=== PATIENT | male | born 1950 | race Caucasian/White ===

== ENCOUNTER 2016-07-18 22:53 | Inpatient (IN) | payer BC ==
[~2016-07-18] VITALS: Ht 172.7 cm; Wt 100.0 kg
[2016-07-18] MEDS ORDERED: methylPREDNISolone INJ 125 MG/2 ML VIAL (J2930) As Ordered ONE (23:33)
[2016-07-18] MEDS ORDERED: diphenhydrAMINE INJ 50MG/ML VIAL (J1200) As Ordered ONE (23:33)
[2016-07-18] MEDS ORDERED: FAMOTIDINE INJ 20MG/2ML VIAL (S0028) As Ordered ONE (23:33)
[2016-07-18] MEDS ORDERED: KETAMINE HCL 200 MG/20 ML VIAL As Ordered ONE (23:36)
[2016-07-18] MEDS ORDERED: LIDOCAINE 4% INJ 5 ML AMP INH ONE (23:45)
[2016-07-18 23:50] LABS: BASO % 0.1 % (0.0-1.0); EOS # 0.2 K/mm3 (0.0-0.50); EOS % 2.6 % (0.0-3.0); LARGE UNSTAINED CELL # 0.2 K/mm3 (0.0-0.4); LARGE UNSTAINED CELL % 1.9 % (0.0-4.0); LYMPH # 1.5 K/mm3 (1.5-4.5); MEAN CORPUSCULAR HEMOGLOBIN 32.1 pg (27.0-33.0); MEAN CORPUSCULAR HGB CONC 33.5 g/dl (32.0-36.5); MEAN CORPUSCULAR VOLUME 95.9 fl (80.0-96.0); MONO # 0.5 K/mm3 (0.0-0.8); MONO % 6.1 % (0.0-5.0); NEUTROPHILS # 5.3 K/mm3 (1.8-7.7); NEUTROPHILS % 69.2 % (36.0-66.0); PLATELET COUNT, AUTOMATED 162 k/mm3 (150-450); RED CELL DISTRIBUTION WIDTH 12.7 % (11.5-14.5); WHITE BLOOD COUNT 7.7 K/mm3 (4.0-10.0)
[2016-07-18] MEDS ORDERED: MIDAZOLAM INJ 5 MG/ML VIAL (J2250) As Ordered ONE (23:57)
[2016-07-18] MEDS ORDERED: PROPOFOL 200 MG/20 ML VIAL As Ordered ONE (23:59)
[2016-07-18] MEDS ORDERED: PROPOFOL 1,000 MG/100 ML VIAL As Ordered ONE (23:59)
[2016-07-19] VITALS (21 sets, daily range): BP systolic 115–157; BP diastolic 56–95; O2SAT 96–99
[2016-07-19 00:07] LABS: ERYTHROCYTE SEDIMENTATION RATE 6 mm/hr (0-20)
[2016-07-19 00:15] LABS: ANION GAP 6 MEQ/L (8-16); BLOOD UREA NITROGEN 31 MG/DL (7-18); CALCIUM LEVEL 8.4 MG/DL (8.8-10.2); CARBON DIOXIDE LEVEL 29 MEQ/L (21-32); CHLORIDE LEVEL 107 MEQ/L (98-107); CREATININE FOR GFR 0.94 MG/DL (0.70-1.30); GLOMERULAR FILTRATION RATE > 60.0 (>49); GLUCOSE, FASTING 109 MG/DL (80-110); SODIUM LEVEL 142 MEQ/L (136-145)
--- NOTE | 2016-07-19 00:30 | REP ---
Clinical: Status post intubation. Comparison: 02/06/2009. Findings: Examination is limited by portable technique and poor inspiratory effort which accentuate the pulmonary vasculature and interstitial markings. Pulmonary vascular congestion cannot be excluded along with basilar atelectasis. Endotracheal tube is approximately 2.2 cm above the goyo. No definite effusion. No pneumothorax. Skeletal structures appear intact. Impression: Endotracheal tube approximately 2.2 cm above the goyo. Cannot exclude pulmonary vascular congestion or trace basilar atelectasis. Signed by David Gonzalez MD 07/19/2016 12:21 A
[2016-07-19 00:45] LABS: ABG BASE EXCESS -3.3 (-2.0-2.0); ABG DEVICE NASAL CANN; ABG HCO3 22.9 MEQ/L (22.0-26.0); ABG PARTIAL PRESSURE CO2 45.5 mmHg (35.0-45.0); ABG PARTIAL PRESSURE O2 96.4 mmHg (75.0-100.0); ABG STANDARD HCO3 21.7 MEQ/L (22.0-26.0); ABG TOTAL CO2 24.3 MEQ/L (23.0-31.0)
[2016-07-19] MEDS ORDERED: PROPOFOL 1,000 MG in APPROPRIATE DILUENT 1 EA IV SCH (00:50)
[2016-07-19] MEDS ORDERED: MORPHINE 2 MG/ML 1ML SYRINGE IV PRN (01:00)
[2016-07-19] MEDS ORDERED: MIDAZOLAM INJ 2 MG/2 ML VIAL (J2250) IV PRN (01:00)
[2016-07-19] MEDS ORDERED: MIDAZOLAM INJ 2 MG/2 ML VIAL (J2250) As Ordered ONE ×3 (01:13→04:09)
[2016-07-19] MEDS ORDERED: VITA-130 PO (01:20)
[2016-07-19] MEDS ORDERED: FISH120012 PO (01:20)
[2016-07-19] MEDS ORDERED: VITATAB11 PO (01:20)
[2016-07-19] MEDS ORDERED: LISI2.5T3 PO (01:20)
[2016-07-19] MEDS ORDERED: CRES20TA PO (01:20)
[2016-07-19] MEDS ORDERED: CALC1TAB30 PO (01:20)
[2016-07-19] MEDS ORDERED: PLAV75TA38 PO (01:20)
[2016-07-19] MEDS ORDERED: ASPI81CH PO (01:20)
[2016-07-19] MEDS ORDERED: TIMO5OPD OU (01:20)
[2016-07-19] MEDS ORDERED: ZOLP10TA2 PO (01:20)
[2016-07-19] MEDS ORDERED: TYLE650T35 PO (01:20)
[2016-07-19] MEDS ORDERED: VITA100066 PO (01:20)
--- NOTE | 2016-07-19 02:18 | CCN ---
DATE: 07/19/2016 I was called to evaluate this 65-year-old male in the emergency department for acute hypoxic respiratory failure. He presented to the emergency department with shortness of breath and a foreign body sensation in his throat. Endoscopy was performed and significant edema was identified of the upper airway. An endotracheal tube was placed via nasal approach and he has been initiated on mechanical ventilatory support. According to his spouse, he was in his usual state of health prior to this episode with no prodromal symptoms. He has been taking an DONALD inhibitor for the past five years to treat hypertension. He has a past medical history per the electronic record of coronary artery disease and myocardial infarction in 2008 and subsequently two stents were placed. He has hypertension and dyslipidemia, osteoarthritis, degenerative disc disease and a remote history of colon polyps. At bedside, he is ill-appearing. His temperature is 98, pulse rate 100, respirations 18 over 14 delivered, blood pressure 122/70. HEENT: His pupils are equal and round and react to light. The endotracheal tube is in the left nares, #7 in size. The oral mucosa is pink. Neck is supple without meningismus. There is no stridor or air leak over the upper air column. Jugular veins are flat. Heart: Sounds are regular without appreciable murmur. There is no lift, no rub. Breath sounds are coarse, clear bilaterally. No focal sounds. The chest moves symmetrically with ventilated efforts. Abdomen is soft with intact bowel sounds. There is no palpable mass. Extremities: Show no significant edema. Pulses are palpable times four. DIAGNOSTIC STUDIES: I have reviewed his chest x-ray image which shows the endotracheal tube in good position and cardiomegaly. I have reviewed a photograph taken at time of the endoscopy which does show significant supraglottic edema. White cell count is 7.7, hemoglobin 14.4, hematocrit 41, platelet count 162,000. Sodium is 142, potassium 4.0, chloride 107, CO2 29, BUN 31, creatinine 0.9, glucose 109. Arterial blood gases have been drawn and results are pending. The primary problem requiring critical attention is acute respiratory failure. The patient has had nasotracheal intubation performed. Will initiate mechanical ventilation and check an arterial blood gas. Laryngeal edema, angioedema. I suspect secondary to the DONALD inhibitor. Medication has been stopped. Coronary artery disease. We will hold his anticoagulation (aspirin and Plavix) for the time being. Hypertension. Blood pressure is acceptable at this point. He is receiving propofol sedation. Will continue with atenolol. DVT prophylaxis. This will be addressed with sequential hose. Ulcer prophylaxis will be addressed with Protonix. I have discussed the patient's case at bedside with the ER attending and the patient's spouse. We will now facilitate admission to the intensive care unit as soon as a bed becomes available. 87 minutes spent in the provision of bedside critical care coordination.
[2016-07-19] MEDS ORDERED: METAL LOCK LOOP XX ONE (02:33)
[2016-07-19] MEDS ORDERED: PROPOFOL 1,000 MG/100 ML VIAL As Ordered ONE ×2 (04:03→06:42)
[2016-07-19 05:35] LABS: ABG BASE EXCESS -1.4 (-2.0-2.0); ABG HCO3 23.4 MEQ/L (22.0-26.0); ABG PARTIAL PRESSURE CO2 39.8 mmHg (35.0-45.0); ABG PARTIAL PRESSURE O2 89.4 mmHg (75.0-100.0); ABG STANDARD HCO3 23.3 MEQ/L (22.0-26.0); ABG TOTAL CO2 24.6 MEQ/L (23.0-31.0); ABG pH (ARTERIAL) 7.387 UNITS (7.350-7.450)
--- NOTE | 2016-07-19 05:45 | EDDOCDS ---
Nurse's Notes [facility] Name: Brent Harris Age: 65 yrs Sex: Male : 1950 Arrival Date: 07/18/2016 Time: 22:53 Bed 2 Private MD: Eduard Diagnosis: Shortness of breath-AIRWAY ANGIOEDEMA, ACEI INDUCED. Presentation: 07/18 23:09 Presenting complaint: Patient states: While riding his bike home at 2030, pt felt like jo3 his throat was tingling. Over the course of the next 2 hours, pt felt like his airway was narrowing and he was struggling to get in an breath. Adult Sepsis Screening: The patient does not have new or worsening altered mentation. Patient's respiratory rate is less than 22. Systolic blood pressure is greater than 100. Patient has a qSOFA score of 0- Negative Sepsis Screen. Suicide/Homicide risk assessment- the patient denies having any suicidal and/or homicidal ideations and does not present with any other emotional, behavioral or mental health complaints. Status: Patient is not a counseling services manager or dependent. Transition of care: patient was not received from another setting of care. 23:09 Acuity: TRINO Level 2 jo3 23:09 Method Of Arrival: Walkin/Carried/Asstd jo3 Triage Assessment: 23:11 General: Appears in no apparent distress, comfortable, Behavior is appropriate for age, jo3 cooperative. HIV screening NA for this visit Offered previously. Neurological: Level of Consciousness is awake, alert, Oriented to person, place, time. Respiratory: Airway is patent Respiratory effort is even, unlabored. Derm: Skin is pink, warm & dry. 07/19 05:32 Respiratory: Onset: The symptoms/episode began/occurred gradually. jp6 Historical: - Allergies: No known drug Allergies; - Home Meds: 1. lisinopril 2.5 mg Oral tab 1 tab once daily 2. Crestor 20 mg Oral tab 1 tab once daily 3. atenolol 25 mg Oral tab 1 tab once daily 4. Plavix 75 mg Oral tab 1 tab once daily 5. aspirin 81 mg Oral tab 1 tab once daily 6. zolpidem 10 mg Oral tab 1 tab once daily 7. Tylenol 325 mg Oral tab 2 tabs every 6 hours 8. gabapentin 300 mg Oral tab twice a day 9. Fish Oil 1200 Oral daily 10. vitamin B complex oral cap daily 11. timolol maleate 0.5 % Opht drpd 1 drop once daily - PMHx: NE; HTN; - PSHx: Knee surgery; back surgery; thumb surgery; foot surgery; Adenoidectomy; Tonsillectomy; TYSON carpal tunnel; knee replacements TYSON; cardiac stents x2; - Social history: Smoking status: Patient states former smoker of tobacco. No barriers to communication noted, The patient speaks fluent [place], Speaks appropriately for age. - Family history: Not pertinent. - : The pt / caregiver states he / she is not on anticoagulants. Home medication list is obtained from the patient, family members. - Exposure Risk Screening:: None identified. Screenin:31 Screening information is obtained from the patient. Fall risk: No risks identified. jp6 Assistance ADL's: requires no assistance with activities of daily living. Abuse/DV Screen: The patient / caregiver reports he/she is: not in a situation that causes fear, pain or injury. Nutritional screening: No deficits noted. Advance Directives: Currently, there is a health care proxy, Maribel Harris . There is no active DNR order. There is no living will. home support is adequate. Assessment: 07/18 23:50 General: Appears in no apparent distress, uncomfortable, well nourished, well groomed, kas2 Behavior is appropriate for age, cooperative. General: Patient complaining of a difficulty in breathing. States that he feels his throat is closing. Hoarse voice. States his throat feel scratchy. Denies chest pain. No drooling. Able to swallow own saliva. No tongue or lip swelling noted. . Pain: Location: throat Pain currently is 5 out of 10 on a pain scale. Neurological: Level of Consciousness is awake, alert, Oriented to person, place, time. Cardiovascular: Capillary refill < 3 seconds Heart tones S1 S2 present Rhythm is sinus rhythm No ectopy. Chest pain is denied. Respiratory: Airway is patent Respiratory effort is even, unlabored, Respiratory pattern is regular, symmetrical, Breath sounds are clear bilaterally. Derm: Skin is intact, Skin is dry, Skin is pink, warm & dry. Skin temperature is warm. Musculoskeletal: No deficits noted. Injury Description: No known injury. 23:55 Reassessment: Pt moved to - used ambuscope pt tolerated well.Plan to [facility] intubate for swelling.. 03 00:00 Reassessment: Patient appears in no apparent distress at this time. General: Appears in [facility] no apparent distress, comfortable. Neurological: Level of Consciousness is unresponsive. Cardiovascular: Capillary refill < 3 seconds Heart tones S1 S2 present Rhythm is sinus rhythm No ectopy. Respiratory: Airway via nasal intubation Respiratory effort is even, Respiratory pattern is symmetrical, Breath sounds are clear bilaterally. GI: No deficits noted. : No deficits noted. Derm: Skin is pink, warm & dry. Musculoskeletal: No deficits noted. 00:31 Reassessment: Patient appears in no apparent distress at this time. Respiratory: Airway [facility] via nasal intubation Respiratory effort is even, Respiratory pattern is symmetrical. 01:02 Reassessment: Patient appears in no apparent distress at this time. General: Appears in [facility] no apparent distress, comfortable. Pain: Unable to use pain scale. Neurological: Level of Consciousness is unresponsive, Oriented to. EENT: Nares with bleeding noted on left left nare. Cardiovascular: Rhythm is sinus rhythm No ectopy. Respiratory: Airway is patent via nasal intubation Respiratory effort is even, unlabored, Respiratory pattern is regular, symmetrical, Breath sounds are clear bilaterally. Derm: Skin is pink, warm & dry. 01:38 Reassessment: Patient appears in no apparent distress at this time. General: Appears in [facility] no apparent distress, Behavior is restless. Pain: Unable to use pain scale. Patient is intubated. Neurological: Level of Consciousness is unresponsive. EENT:. Cardiovascular: Rhythm is sinus rhythm No ectopy. Respiratory: Airway is patent via nasal intubation Respiratory effort is even, unlabored, Respiratory pattern is regular, symmetrical, Breath sounds are clear bilaterally. Derm: Skin is pink, warm & dry. 02:00 Reassessment: Patient appears in no apparent distress at this time. General: Appears in [facility] no apparent distress, comfortable. Neurological: Level of Consciousness is unresponsive. Cardiovascular: Rhythm is sinus rhythm No ectopy. Respiratory: Airway is patent Respiratory effort is even, unlabored, Respiratory pattern is regular, symmetrical, Breath sounds are clear bilaterally. Derm: Skin is pink, warm & dry. 02:30 Reassessment: Patient appears in no apparent distress at this time. remains at [facility] bedside. Pt is tolerating the ventilator.Appears comfortable-does move his toes. FFP infusing as ordered.. 02:40 Reassessment: FFP finished.. jp6 03:02 Reassessment: Patient appears in no apparent distress at this time. General: Appears in jp6 no apparent distress, comfortable. Pain: Unable to use pain scale. Patient is intubated. Pain: Unable to use pain scale. Patient is unresponsive. Neurological: Level of Consciousness is unresponsive. Cardiovascular: Rhythm is sinus rhythm No ectopy. Respiratory: Airway is patent Respiratory effort is even, unlabored, Respiratory pattern is regular, symmetrical, Breath sounds are clear. GI: No deficits noted. : No deficits noted. Derm: Skin is pink, warm & dry. 03:29 Reassessment: Patient appears in no apparent distress at this time. General: Appears in jp6 no apparent distress. Pain: Unable to use pain scale. Patient is intubated. Patient is unresponsive. Neurological: Level of Consciousness is unresponsive. Cardiovascular: Capillary refill < 3 seconds Heart tones S1 S2 present Rhythm is sinus rhythm No ectopy. Respiratory: Airway is patent Respiratory effort is even, unlabored, Respiratory pattern is regular, symmetrical. Derm: Skin is pink, warm & dry. 03:57 Reassessment: Patient appears in no apparent distress at this time. General: Appears in jp6 no apparent distress, comfortable. Neurological: Level of Consciousness is unresponsive. Cardiovascular: Rhythm is sinus rhythm No ectopy. Respiratory: Breath sounds are clear bilaterally. Derm: Skin is pink, warm & dry. 04:17 Reassessment: propofol being changed to new bottle-pt became very restless and went to [facility] pull out endotracheal tube- stopped him, at bedside and ordered another bolus of propofol which did help settle pt. remains atr bedside. Lungs are clear. O2 sat-98%.. 04:44 Reassessment: Patient appears in no apparent distress at this time. General: Appears in jp6 no apparent distress, comfortable. Pain: Unable to use pain scale. Patient is unresponsive. Neurological: Level of Consciousness is unresponsive. Cardiovascular: Capillary refill < 3 seconds Rhythm is sinus rhythm No ectopy. Respiratory: Airway is patent Respiratory effort is even, unlabored, Respiratory pattern is regular, symmetrical, Breath sounds are clear bilaterally. Derm: Skin is pink, warm & dry. 05:13 Reassessment: Patient appears in no apparent distress at this time. General: Appears in jp6 no apparent distress, comfortable. Pain: Unable to use pain scale. Patient is intubated. Patient is unresponsive. Neurological: Level of Consciousness is unresponsive. EENT:. Cardiovascular: Capillary refill < 3 seconds Rhythm is sinus rhythm No ectopy. Respiratory: Airway is patent Respiratory effort is even, Breath sounds are clear bilaterally. Derm: Skin is pink, warm & dry. Vital Signs: 07/18 22:54 BP 154 / 86 RA Sitting (auto/lg); Pulse 57; Resp 18; Temp 97.3(O); Pulse Ox 96% on R/A; rs6 Weight 102.06 kg (R); Height 5 ft. 8 in. (172.72 cm) (R); 23:35 Pulse 65 MON; Pulse Ox 98% ; jp6 23:36 Pulse 62 MON; Pulse Ox 98% ; jp6 23:54 BP 199 / 92 (auto/); jp6 23:54 Pulse 67 MON; Pulse Ox 97% ; jp6 23:59 BP 225 / 112 (auto/); jp6 23:59 Pulse 108 MON; Pulse Ox 95% ; jp6 07/19 00:08 BP 167 / 115 (auto/); jp6 00:08 Pulse 96 MON; Pulse Ox 98% ; jp6 00:13 BP 154 / 77 (auto/); jp6 00:13 Pulse 94 MON; Pulse Ox 85% ; jp6 00:16 BP 128 / 63 (auto/); jp6 00:16 Pulse 79 MON; Pulse Ox 99% ; jp6 00:21 BP 111 / 69 (auto/); jp6 00:21 Pulse 78 MON; Pulse Ox 99% ; jp6 00:26 BP 99 / 73 (auto/); jp6 00:26 Pulse 77 MON; Pulse Ox 97% ; jp6 00:31 BP 115 / 61 (auto/); jp6 00:31 Pulse 74 MON; Pulse Ox 97% ; jp6 00:36 BP 116 / 76 (auto/); jp6 00:36 Pulse 79 MON; Pulse Ox 96% ; jp6 00:41 BP 114 / 57 (auto/); jp6 00:41 Pulse 69 MON; Pulse Ox 97% ; jp6 00:46 BP 125 / 68 (auto/); jp6 00:46 Pulse 75 MON; Pulse Ox 95% ; jp6 00:51 BP 131 / 73 (auto/); jp6 00:51 Pulse 65 MON; Pulse Ox 94% ; jp6 00:56 BP 134 / 97 (auto/); jp6 00:56 Pulse 65 MON; Pulse Ox 98% ; jp6 01:01 BP 134 / 75 (auto/); jp6 01:01 Pulse 66 MON; Pulse Ox 97% ; jp6 01:06 BP 123 / 59 (auto/); jp6 01:06 Pulse 64 MON; Pulse Ox 97% ; jp6 01:11 BP 142 / 69 (auto/); jp6 01:11 Pulse 62 MON; Pulse Ox 96% ; jp6 01:16 BP 136 / 59 (auto/); jp6 01:16 Pulse 66 MON; Pulse Ox 96% ; jp6 01:16 Resp 16; Temp 96.6(TE); jp6 01:21 BP 111 / 58 (auto/); jp6 01:21 Pulse 67 MON; Pulse Ox 96% ; jp6 01:26 BP 108 / 59 (auto/); jp6 01:26 Pulse 64 MON; Pulse Ox 96% ; jp6 01:31 BP 105 / 55 (auto/); jp6 01:31 Pulse 65 MON; Pulse Ox 96% ; jp6 01:36 BP 121 / 57 (auto/); jp6 01:36 Pulse 64 MON; Pulse Ox 96% ; jp6 01:41 BP 119 / 59 (auto/); jp6 01:41 Pulse 63 MON; Pulse Ox 96% ; jp6 01:46 BP 114 / 68 (auto/); jp6 01:46 Pulse 65 MON; Pulse Ox 96% ; jp6 01:51 BP 129 / 76 (auto/); jp6 01:51 Pulse 65 MON; Pulse Ox 96% ; jp6 01:56 BP 150 / 79 (auto/); jp6 01:56 Pulse 65 MON; Pulse Ox 96% ; jp6 02:01 BP 125 / 60 (auto/); jp6 02:01 Pulse 67 MON; Pulse Ox 97% ; jp6 02:06 BP 131 / 60 (auto/); jp6 02:06 Pulse 67 MON; Pulse Ox 97% ; jp6 02:11 BP 117 / 62 (auto/); jp6 02:11 Pulse 68 MON; Pulse Ox 97% ; jp6 02:15 Pulse 67 MON; Pulse Ox 97% ; jp6 02:16 BP 121 / 58 (auto/); jp6 02:16 Pulse 68 MON; Pulse Ox 97% ; jp6 02:21 BP 122 / 57 (auto/); jp6 02:21 Pulse 68 MON; Pulse Ox 97% ; jp6 02:26 BP 127 / 61 (auto/); jp6 02:26 Pulse 68 MON; Pulse Ox 97% ; jp6 02:31 BP 125 / 62 (auto/); jp6 02:31 Pulse 66 MON; Pulse Ox 97% ; jp6 02:36 BP 129 / 67 (auto/); jp6 02:36 Pulse 67 MON; Pulse Ox 97% ; jp6 02:40 Temp 96.3; jp6 02:41 BP 137 / 66 (auto/); jp6 02:41 Pulse 67 MON; Pulse Ox 98% ; jp6 02:46 BP 140 / 62 (auto/); jp6 02:46 Pulse 67 MON; Pulse Ox 98% ; jp6 02:51 BP 151 / 78 (auto/); jp6 02:51 Pulse 67 MON; Pulse Ox 100% ; jp6 02:56 BP 152 / 75 (auto/); jp6 02:56 Pulse 64 MON; Pulse Ox 100% ; jp6 03:01 BP 141 / 66 (auto/); jp6 03:01 Pulse 65 MON; Pulse Ox 99% ; jp6 03:06 BP 150 / 71 (auto/); jp6 03:06 Pulse 65 MON; Pulse Ox 97% ; jp6 03:11 BP 134 / 73 (auto/); jp6 03:11 Pulse 67 MON; Pulse Ox 96% ; jp6 03:16 BP 129 / 73 (auto/); jp6 03:16 Pulse 66 MON; Pulse Ox 94% ; jp6 03:20 Pulse 67 MON; Pulse Ox 95% ; jp6 03:21 BP 128 / 77 (auto/); jp6 03:21 Pulse 66 MON; Pulse Ox 95% ; jp6 03:26 BP 128 / 78 (auto/); jp6 03:26 Pulse 67 MON; Pulse Ox 94% ; jp6 03:31 Pulse 66 MON; Pulse Ox 94% ; jp6 03:31 BP 125 / 73 (auto/); jp6 03:32 Pulse 66 MON; Pulse Ox 94% ; jp6 03:36 BP 130 / 70 (auto/); jp6 03:36 Pulse 66 MON; Pulse Ox 93% ; jp6 03:41 BP 124 / 72 (auto/); jp6 03:41 Pulse 68 MON; Pulse Ox 97% ; jp6 03:46 BP 126 / 76 (auto/); jp6 03:46 Pulse 67 MON; Pulse Ox 97% ; jp6 03:51 BP 124 / 78 (auto/); jp6 03:51 Pulse 68 MON; Pulse Ox 97% ; jp6 03:56 BP 126 / 78 (auto/); jp6 03:56 Pulse 67 MON; Pulse Ox 97% ; jp6 03:56 Resp 16; Temp 96.6(TE); jp6 04:01 BP 140 / 74 (auto/); jp6 04:01 Pulse 66 MON; Pulse Ox 98% ; jp6 04:06 BP 149 / 77 (auto/); jp6 04:06 Pulse 67 MON; Pulse Ox 99% ; jp6 04:11 BP 160 / 81 (auto/); jp6 04:12 Pulse 69 MON; Pulse Ox 98% ; jp6 04:13 Pulse 72 MON; Pulse Ox 97% ; jp6 04:16 BP 134 / 78 (auto/); jp6 04:16 Pulse 75 MON; Pulse Ox 97% ; jp6 04:21 Pulse 74 MON; Pulse Ox 97% ; jp6 04:21 BP 130 / 77 (auto/); jp6 04:26 BP 121 / 75 (auto/); jp6 04:26 Pulse 75 MON; Pulse Ox 96% ; jp6 04:31 BP 124 / 76 (auto/); jp6 04:31 Pulse 73 MON; Pulse Ox 96% ; jp6 04:36 BP 119 / 74 (auto/); jp6 04:36 Pulse 71 MON; Pulse Ox 96% ; jp6 04:41 BP 122 / 74 (auto/); jp6 04:41 Pulse 71 MON; Pulse Ox 96% ; jp6 04:46 BP 121 / 72 (auto/); jp6 04:46 Pulse 71 MON; Pulse Ox 96% ; jp6 04:51 BP 120 / 68 (auto/); jp6 04:51 Pulse 70 MON; Pulse Ox 96% ; jp6 04:56 BP 117 / 70 (auto/); jp6 04:56 Pulse 70 MON; Pulse Ox 96% ; jp6 05:01 BP 113 / 71 (auto/); jp6 05:01 Pulse 69 MON; Pulse Ox 96% ; jp6 05:06 BP 122 / 76 (auto/); jp6 05:06 Pulse 70 MON; Pulse Ox 96% ; jp6 05:11 BP 120 / 71 (auto/); jp6 05:11 Pulse 69 MON; Pulse Ox 96% ; jp6 05:27 BP 146 / 67; Pulse 66; Resp 16; Temp 96.7(TE); Pulse Ox 97% on ETT vent; jp6 07/18 22:54 Body Mass Index 34.21 (102.06 kg, 172.72 cm) rs6 Vitals: 07/18 22:54 Log In Time: July 18, 2016 at 22:54. RN notified that patient meets Red Flag rs6 criteria. ED Course: 22:54 Patient visited by Shamika Barros PCA. rs6 22:54 Eduard is Private Physician. rs6 22:54 Patient moved to Waiting rs6 23:06 Savita Tovar,RN is Primary Nurse. sls1 23:06 Patient moved to 11 sls1 23:10 Triage Initiated jo3 23:17 Drew Valdez DO is Attending Physician. mm11 23:17 Patient visited by Drew Valdez DO. mm11 23:18 Patient visited by Suha Colby, GRAYSON. sls1 23:27 Leyla Guerra,RN is Primary Nurse. sls1 23:27 Patient moved to 2 sls1 23:28 Patient visited by Drew Valdez DO. mm11 23:55 ambuscope. Set up for procedure. Performed by Drew Valdez DO Monitored with cardiac jp6 monitor, pulse ox, Patient tolerated well. 23:59 Assist provider with intubation with 7.0 Fr. ETT. via left nare. Set up intubation jp6 tray. Intubated by Drew Valdez DO Placement verified by CXR, CO2 detector w/ + color change, auscultating bilateral breath sounds, Patient tolerated well. 23:59 Labs/Blood culture drawn. Assist ventilation with ventilator. jp6 07/19 00:13 Patient visited by Leyla Guerra,GRAYSON. kas2 00:16 The patient / caregiver is instructed regarding the plan of care and ED course. Cardiac jp6 monitor on. Pulse ox on. NIBP on. 00:16 Inserted saline lock: 18 gauge in left hand antecubital area and blood collected. jp6 00:22 Yan Muller is Hospitalizing Provider. mm11 00:35 Chest, 1 View Returned. EDMS 01:05 Ramirez cath inserted 16 Fr. Balloon inflated. To gravity drainage. returned clear yellow jp6 urine. Patient tolerated well. 01:23 [facility] Payment Agreement was scanned into [employer] and attached to record. [facility] 01:31 Blood products: FFP X 2 units given. jp6 02:30 Primary Nurse role handed off by Savita Tovar,RN sls1 05:13 Primary Nurse role handed off by Leyla Guerra,GRAYSON jp6 05:13 Anita Walker,GRAYSON is Primary Nurse. jp6 05:24 Digital Picture was scanned into [employer] and attached to record. mdr Administered Medications: 02 00:41 Drug: Solu-MEDROL 125 mg [Solu-Medrol 500 mg intravenous solution (125 mg)] Route: IVP; kas2 Site: left antecubital; 00:42 Drug: diphenhydrAMINE 25 mg [diphenhydramine 50 mg/mL injection solution (0.5 mL)] kas2 Route: IVP; Site: left antecubital; 23:44 Drug: Lidocaine 5 ml [lidocaine 4 % (40 mg/mL) mucosal solution (5 mL)] Route: Mucous jc3 Membrane; 23:45 Drug: NS 0.9% 1000 ml [sodium chloride 0.9 % intravenous solution] Route: IV; Rate: 100 jp6 mL/hr; Site: left antecubital; 23:50 Drug: Famotidine 10 mg [famotidine 10 mg/mL intravenous solution] Route: IVPB; Infused kas2 Over: 30 mins; Site: left antecubital; 03 00:08 Drug: Propofol (PF) 2551.5 mcg/min [propofol (PF) 1,000 mg/100 mL (10 mg/mL) jp6 intravenous emulsion] Route: IVPB; Rate: calculated rate; Site: left antecubital; 00:08 Drug: Propofol (PF) 40 mg [propofol (PF) 1,000 mg/100 mL (10 mg/mL) intravenous jp6 emulsion (4 mL)] Route: IVP; Site: left antecubital; 00:09 Drug: Ketamine (1mg/kg - Peds initial dose) 100 mg [ketamine 10 mg/mL injection jp6 solution (10 mL)] Route: IVP; Site: left antecubital; 01:15 Drug: Midazolam 2 mg [midazolam 1 mg/mL injection solution (2 mL)] Route: IVP; Site: sls1 right hand; 01:59 Drug: Midazolam 2 mg [midazolam 1 mg/mL injection solution (2 mL)] Route: IVP; Site: sls1 left hand; 04:15 Drug: Propofol (PF) 40 mg [propofol (PF) 1,000 mg/100 mL (10 mg/mL) intravenous jp6 emulsion (4 mL)] {Note: given by Dr. Valdez.} Route: IVP; Site: left antecubital; 04:17 Drug: Midazolam 2 mg [midazolam 1 mg/mL injection solution (2 mL)] Route: IVP; Site: sls1 left hand; Intake: 01:16 PO: 0.00ml; IV: 1050.00ml (NS); Total: 1050.00ml. jp6 03:56 IV: 381.00ml (FFP); Total: 1431.00ml. jp6 05:27 PO: 0.00ml; IV: 180.00ml (NS); Total: 1611.00ml. jp6 Output: 05:27 Urine: 400.00ml (Ramirez); Total: 400.00ml. jp6 RT: 07/18 23:44 Initial Med Neb Given as ordered. jc3 07/19 00:50 ABG's drawn from right radial artery pressure held for 5 minutes no bleeding noted jc3 pressure bandage applied specimen sent pt. tolerated well. Ventilation: Ventilator Settings PRVC, FiO2 40% Resp Rate: 14, Tidal Volume 480ml PEEP: 5. Respiratory: Airway is compromised via nasal intubation Respiratory effort is labored, Breath sounds are diminished bilaterally. 00:52 Intubation: Performed by Dr. Valdez. placed in left nare. 7.0 Fr. ETT Successful on jc3 first attempt. Placement verified by CXR, CO2 detector w/ + color change, auscultating bilateral breath sounds, Ventilated with Ambu bag. ventilator. Order Results: Lab Order: CBC with Diff; SPEC'M 07/18/16 23:42 Test: WHITE BLOOD COUNT; Value: 7.7; Range: 4.0-10.0; Units: K/mm3; Status: F Test: RED BLOOD COUNT; Value: 4.50; Range: 4.30-6.10; Units: M/mm3; Status: F Test: HEMOGLOBIN; Value: 14.4; Range: 14.0-18.0; Units: g/dl; Status: F Test: HEMATOCRIT; Value: 43.1; Range: 42.0-52.0; Units: %; Status: F Test: MEAN CORPUSCULAR VOLUME; Value: 95.9; Range: 80.0-96.0; Units: fl; Status: F Test: MEAN CORPUSCULAR HEMOGLOBIN; Value: 32.1; Range: 27.0-33.0; Units: pg; Status: F Test: MEAN CORPUSCULAR HGB CONC; Value: 33.5; Range: 32.0-36.5; Units: g/dl; Status: F Test: RED CELL DISTRIBUTION WIDTH; Value: 12.7; Range: 11.5-14.5; Units: %; Status: F Test: PLATELET COUNT, AUTOMATED; Value: 162; Range: 150-450; Units: k/mm3; Status: F Test: NEUTROPHILS %; Value: 69.2; Range: 36.0-66.0; Abnormal: Above high normal; Units: %; Status: F Test: LYMPH %; Value: 20.0; Range: 24.0-44.0; Abnormal: Below low normal; Units: %; Status: F Test: MONO %; Value: 6.1; Range: 0.0-5.0; Abnormal: Above high normal; Units: %; Status: F Test: EOS %; Value: 2.6; Range: 0.0-3.0; Units: %; Status: F Test: BASO %; Value: 0.1; Range: 0.0-1.0; Units: %; Status: F Test: LARGE UNSTAINED CELL %; Value: 1.9; Range: 0.0-4.0; Units: %; Status: F Test: NEUTROPHILS #; Value: 5.3; Range: 1.8-7.7; Units: K/mm3; Status: F Test: LYMPH #; Value: 1.5; Range: 1.5-4.5; Units: K/mm3; Status: F Test: MONO #; Value: 0.5; Range: 0.0-0.8; Units: K/mm3; Status: F Test: EOS #; Value: 0.2; Range: 0.0-0.50; Units: K/mm3; Status: F Test: BASO #; Value: 0.0; Range: 0.0-0.2; Units: K/mm3; Status: F Test: LARGE UNSTAINED CELL #; Value: 0.2; Range: 0.0-0.4; Units: K/mm3; Status: F Lab Order: BMP; SPEC'M 07/18/16 23:42 Test: GLUCOSE, FASTING; Value: 109; Range: 80-110; Units: MG/DL; Status: F Test: BLOOD UREA NITROGEN; Value: 31; Range: 7-18; Abnormal: Above high normal; Units: MG/DL; Status: F Test: CREATININE FOR GFR; Value: 0.94; Range: 0.70-1.30; Units: MG/DL; Status: F Test: GLOMERULAR FILTRATION RATE; Value: > 60.0; Range: >49; Status: F Test: SODIUM LEVEL; Value: 142; Range: 136-145; Units: MEQ/L; Status: F Test: POTASSIUM SERUM; Value: 4.0; Range: 3.5-5.1; Units: MEQ/L; Status: F Test: CHLORIDE LEVEL; Value: 107; Range: 98-107; Units: MEQ/L; Status: F Test: CARBON DIOXIDE LEVEL; Value: 29; Range: 21-32; Units: MEQ/L; Status: F Test: ANION GAP; Value: 6; Range: 8-16; Abnormal: Below low normal; Units: MEQ/L; Status: F Test: CALCIUM LEVEL; Value: 8.4; Range: 8.8-10.2; Abnormal: Below low normal; Units: MG/DL; Status: F Test Note: ; Units are mL/min/1.73 m2 Chronic Kidney Disease Staging per NKF: Stage I & II GFR >=60 Normal to Mildly Decreased Stage III GFR 30-59 Moderately Decreased Stage IV GFR 15-29 Severely Decreased Stage V GFR <15 Very Little GFR Left ESRD GFR <15 on [employer] Lab Order: ESR; SPEC'M 07/18/16 23:42 Test: ERYTHROCYTE SEDIMENTATION RATE; Value: 6; Range: 0-20; Units: mm/hr; Status: F Lab Order: CRP; [facility] 07/18/16 23:42 Test: C REACTIVE PROTEIN QUANTITATIV; Value: < 0.30; Range: 0.00-0.30; Units: MG/DL; Status: F Lab Order: Type & Screen; [facility] 07/18/16 23:42 Test: BLOOD TYPE; Value: O POS; Status: F Test: AB SCREEN (INDIRECT KAYLA)GEL; Value: NEGATIVE; Status: F Lab Order: -Arterial Blood Gas; [facility] 07/19/16 00:33 Test: ABG pH (ARTERIAL); Value: 7.320; Range: 7.350-7.450; Abnormal: Below low normal; Units: UNITS; Status: F Test: ABG PARTIAL PRESSURE CO2; Value: 45.5; Range: 35.0-45.0; Abnormal: Above high normal; Units: mmHg; Status: F Test: ABG PARTIAL PRESSURE O2; Value: 96.4; Range: 75.0-100.0; Units: mmHg; Status: F Test: ABG TOTAL CO2; Value: 24.3; Range: 23.0-31.0; Units: MEQ/L; Status: F Test: ABG HCO3; Value: 22.9; Range: 22.0-26.0; Units: MEQ/L; Status: F Test: ABG BASE EXCESS; Value: -3.3; Range: -2.0-2.0; Abnormal: Below low normal; Status: F Test: ABG STANDARD HCO3; Value: 21.7; Range: 22.0-26.0; Abnormal: Below low normal; Units: MEQ/L; Status: F Test: ABG O2 SATURATION; Value: 97.1; Range: 95.0-99.0; Units: %; Status: F Test: ABG DEVICE; Value: NASAL AMY; Status: F Lab Order: ARTERIAL BLOOD GAS; [facility] 07/19/16 05:26 Test: ABG pH (ARTERIAL); Value: 7.387; Range: 7.350-7.450; Units: UNITS; Status: F Test: ABG PARTIAL PRESSURE CO2; Value: 39.8; Range: 35.0-45.0; Units: mmHg; Status: F Test: ABG PARTIAL PRESSURE O2; Value: 89.4; Range: 75.0-100.0; Units: mmHg; Status: F Test: ABG TOTAL CO2; Value: 24.6; Range: 23.0-31.0; Units: MEQ/L; Status: F Test: ABG HCO3; Value: 23.4; Range: 22.0-26.0; Units: MEQ/L; Status: F Test: ABG BASE EXCESS; Value: -1.4; Range: -2.0-2.0; Status: F Test: ABG STANDARD HCO3; Value: 23.3; Range: 22.0-26.0; Units: MEQ/L; Status: F Test: ABG O2 SATURATION; Value: 97.3; Range: 95.0-99.0; Units: %; Status: F Radiology Order: Chest, 1 View Test: Chest, 1 View REASON FOR EXAMINATION: POST INTUBATION; Clinical: Status post intubation.; ; Comparison: 02/06/2009.; ; Findings:; Examination is limited by portable technique and poor inspiratory effort which; accentuate the pulmonary vasculature and interstitial markings. Pulmonary; vascular congestion cannot be excluded along with basilar atelectasis.; Endotracheal tube is approximately 2.2 cm above the goyo. No definite; effusion. No pneumothorax. Skeletal structures appear intact.; ; Impression:; Endotracheal tube approximately 2.2 cm above the goyo.; Cannot exclude pulmonary vascular congestion or trace basilar atelectasis.; ; ; Signed by; David Gonzalez MD 07/19/2016 12:21 A; Outcome: 00:22 Decision to Hospitalize by Provider. mm11 05:27 Discharge Assessment: Patient unresponsive, patient administered narcotics - yes. jp6 Patient was admitted to the hospital or transferred to another facility. Admitted to ICU accompanied by nurse, accompanied by tech, via stretcher, with oxygen, on monitor, with chart. critical. No special radiology studies were completed. Admission hand-off: Report called to Tatum GALICIA. Property :Personal belongings accompany Pt. 05:31 The following High Risk Discharge criteria are identified: None. jp6 05:44 Patient left the ED. sls1 Signatures: Dispatcher [employer] EDMS Rosaline Holbrook,RN RN scott3 Drew Valdez, DO DO mm11 Alfa Pan jc3 Suha Colby, RN RN siomara1 Kylie Morris Rebecca, TREER TREER rs6 Joshua Argueta, TREER TREER mdr Leyla Guerra,RN RN kas2 Anita Walker,RN RN jp6 Corrections: (The following items were deleted from the chart) 00:31 00:25 Reassessment: Pt moved to C2- used ambuscope pt tolerated well.Plan to 6 intubate for swelling.. jp6 MTDD
--- NOTE | 2016-07-19 05:45 | EDDOCDS ---
Physician Documentation [facility] Name: Brent Harris Age: 65 yrs Sex: Male : 1950 Arrival Date: 07/18/2016 Time: 22:53 Bed 2 Private MD: Eduard Disposition: 07/19/16 00:22 Hospitalization ordered by Yan Muller for Inpatient Admission. Preliminary diagnosis is Shortness of breath - AIRWAY ANGIOEDEMA, ACEI INDUCED.. - Bed requested for M ICU. - Status is Inpatient Admission. sls1 - Condition is Stable. - Problem is an acute exacerbation. - Symptoms have improved. Historical: - Allergies: No known drug Allergies; - Home Meds: 1. lisinopril 2.5 mg Oral tab 1 tab once daily 2. Crestor 20 mg Oral tab 1 tab once daily 3. atenolol 25 mg Oral tab 1 tab once daily 4. Plavix 75 mg Oral tab 1 tab once daily 5. aspirin 81 mg Oral tab 1 tab once daily 6. zolpidem 10 mg Oral tab 1 tab once daily 7. Tylenol 325 mg Oral tab 2 tabs every 6 hours 8. gabapentin 300 mg Oral tab twice a day 9. Fish Oil 1200 Oral daily 10. vitamin B complex oral cap daily 11. timolol maleate 0.5 % Opht drpd 1 drop once daily - PMHx: TX; HTN; - PSHx: Knee surgery; back surgery; thumb surgery; foot surgery; Adenoidectomy; Tonsillectomy; TYSON carpal tunnel; knee replacements TYSON; cardiac stents x2; - Social history: Smoking status: Patient states former smoker of tobacco. No barriers to communication noted, The patient speaks fluent Cambodian, Speaks appropriately for age. - Family history: Not pertinent. - : The pt / caregiver states he / she is not on anticoagulants. Home medication list is obtained from the patient, family members. - Exposure Risk Screening:: None identified. Vital Signs: 07/18 22:54 BP 154 / 86 RA Sitting (auto/lg); Pulse 57; Resp 18; Temp 97.3(O); Pulse Ox 96% on R/A; rs6 Weight 102.06 kg / 225 lbs (R); Height 5 ft. 8 in. (172.72 cm) (R); 23:35 Pulse 65 MON; Pulse Ox 98% ; jp6 23:36 Pulse 62 MON; Pulse Ox 98% ; jp6 23:54 BP 199 / 92 (auto/); jp6 23:54 Pulse 67 MON; Pulse Ox 97% ; jp6 23:59 BP 225 / 112 (auto/); jp6 23:59 Pulse 108 MON; Pulse Ox 95% ; jp6 07/19 00:08 BP 167 / 115 (auto/); jp6 00:08 Pulse 96 MON; Pulse Ox 98% ; jp6 00:13 BP 154 / 77 (auto/); jp6 00:13 Pulse 94 MON; Pulse Ox 85% ; jp6 00:16 BP 128 / 63 (auto/); jp6 00:16 Pulse 79 MON; Pulse Ox 99% ; jp6 00:21 BP 111 / 69 (auto/); jp6 00:21 Pulse 78 MON; Pulse Ox 99% ; jp6 00:26 BP 99 / 73 (auto/); jp6 00:26 Pulse 77 MON; Pulse Ox 97% ; jp6 00:31 BP 115 / 61 (auto/); jp6 00:31 Pulse 74 MON; Pulse Ox 97% ; jp6 00:36 BP 116 / 76 (auto/); jp6 00:36 Pulse 79 MON; Pulse Ox 96% ; jp6 00:41 BP 114 / 57 (auto/); jp6 00:41 Pulse 69 MON; Pulse Ox 97% ; jp6 00:46 BP 125 / 68 (auto/); jp6 00:46 Pulse 75 MON; Pulse Ox 95% ; jp6 00:51 BP 131 / 73 (auto/); jp6 00:51 Pulse 65 MON; Pulse Ox 94% ; jp6 00:56 BP 134 / 97 (auto/); jp6 00:56 Pulse 65 MON; Pulse Ox 98% ; jp6 01:01 BP 134 / 75 (auto/); jp6 01:01 Pulse 66 MON; Pulse Ox 97% ; jp6 01:06 BP 123 / 59 (auto/); jp6 01:06 Pulse 64 MON; Pulse Ox 97% ; jp6 01:11 BP 142 / 69 (auto/); jp6 01:11 Pulse 62 MON; Pulse Ox 96% ; jp6 01:16 BP 136 / 59 (auto/); jp6 01:16 Pulse 66 MON; Pulse Ox 96% ; jp6 01:16 Resp 16; Temp 96.6(TE); jp6 01:21 BP 111 / 58 (auto/); jp6 01:21 Pulse 67 MON; Pulse Ox 96% ; jp6 01:26 BP 108 / 59 (auto/); jp6 01:26 Pulse 64 MON; Pulse Ox 96% ; jp6 01:31 BP 105 / 55 (auto/); jp6 01:31 Pulse 65 MON; Pulse Ox 96% ; jp6 01:36 BP 121 / 57 (auto/); jp6 01:36 Pulse 64 MON; Pulse Ox 96% ; jp6 01:41 BP 119 / 59 (auto/); jp6 01:41 Pulse 63 MON; Pulse Ox 96% ; jp6 01:46 BP 114 / 68 (auto/); jp6 01:46 Pulse 65 MON; Pulse Ox 96% ; jp6 01:51 BP 129 / 76 (auto/); jp6 01:51 Pulse 65 MON; Pulse Ox 96% ; jp6 01:56 BP 150 / 79 (auto/); jp6 01:56 Pulse 65 MON; Pulse Ox 96% ; jp6 02:01 BP 125 / 60 (auto/); jp6 02:01 Pulse 67 MON; Pulse Ox 97% ; jp6 02:06 BP 131 / 60 (auto/); jp6 02:06 Pulse 67 MON; Pulse Ox 97% ; jp6 02:11 BP 117 / 62 (auto/); jp6 02:11 Pulse 68 MON; Pulse Ox 97% ; jp6 02:15 Pulse 67 MON; Pulse Ox 97% ; jp6 02:16 BP 121 / 58 (auto/); jp6 02:16 Pulse 68 MON; Pulse Ox 97% ; jp6 02:21 BP 122 / 57 (auto/); jp6 02:21 Pulse 68 MON; Pulse Ox 97% ; jp6 02:26 BP 127 / 61 (auto/); jp6 02:26 Pulse 68 MON; Pulse Ox 97% ; jp6 02:31 BP 125 / 62 (auto/); jp6 02:31 Pulse 66 MON; Pulse Ox 97% ; jp6 02:36 BP 129 / 67 (auto/); jp6 02:36 Pulse 67 MON; Pulse Ox 97% ; jp6 02:40 Temp 96.3; jp6 02:41 BP 137 / 66 (auto/); jp6 02:41 Pulse 67 MON; Pulse Ox 98% ; jp6 02:46 BP 140 / 62 (auto/); jp6 02:46 Pulse 67 MON; Pulse Ox 98% ; jp6 02:51 BP 151 / 78 (auto/); jp6 02:51 Pulse 67 MON; Pulse Ox 100% ; jp6 02:56 BP 152 / 75 (auto/); jp6 02:56 Pulse 64 MON; Pulse Ox 100% ; jp6 03:01 BP 141 / 66 (auto/); jp6 03:01 Pulse 65 MON; Pulse Ox 99% ; jp6 03:06 BP 150 / 71 (auto/); jp6 03:06 Pulse 65 MON; Pulse Ox 97% ; jp6 03:11 BP 134 / 73 (auto/); jp6 03:11 Pulse 67 MON; Pulse Ox 96% ; jp6 03:16 BP 129 / 73 (auto/); jp6 03:16 Pulse 66 MON; Pulse Ox 94% ; jp6 03:20 Pulse 67 MON; Pulse Ox 95% ; jp6 03:21 BP 128 / 77 (auto/); jp6 03:21 Pulse 66 MON; Pulse Ox 95% ; jp6 03:26 BP 128 / 78 (auto/); jp6 03:26 Pulse 67 MON; Pulse Ox 94% ; jp6 03:31 Pulse 66 MON; Pulse Ox 94% ; jp6 03:31 BP 125 / 73 (auto/); jp6 03:32 Pulse 66 MON; Pulse Ox 94% ; jp6 03:36 BP 130 / 70 (auto/); jp6 03:36 Pulse 66 MON; Pulse Ox 93% ; jp6 03:41 BP 124 / 72 (auto/); jp6 03:41 Pulse 68 MON; Pulse Ox 97% ; jp6 03:46 BP 126 / 76 (auto/); jp6 03:46 Pulse 67 MON; Pulse Ox 97% ; jp6 03:51 BP 124 / 78 (auto/); jp6 03:51 Pulse 68 MON; Pulse Ox 97% ; jp6 03:56 BP 126 / 78 (auto/); jp6 03:56 Pulse 67 MON; Pulse Ox 97% ; jp6 03:56 Resp 16; Temp 96.6(TE); jp6 04:01 BP 140 / 74 (auto/); jp6 04:01 Pulse 66 MON; Pulse Ox 98% ; jp6 04:06 BP 149 / 77 (auto/); jp6 04:06 Pulse 67 MON; Pulse Ox 99% ; jp6 04:11 BP 160 / 81 (auto/); jp6 04:12 Pulse 69 MON; Pulse Ox 98% ; jp6 04:13 Pulse 72 MON; Pulse Ox 97% ; jp6 04:16 BP 134 / 78 (auto/); jp6 04:16 Pulse 75 MON; Pulse Ox 97% ; jp6 04:21 Pulse 74 MON; Pulse Ox 97% ; jp6 04:21 BP 130 / 77 (auto/); jp6 04:26 BP 121 / 75 (auto/); jp6 04:26 Pulse 75 MON; Pulse Ox 96% ; jp6 04:31 BP 124 / 76 (auto/); jp6 04:31 Pulse 73 MON; Pulse Ox 96% ; jp6 04:36 BP 119 / 74 (auto/); jp6 04:36 Pulse 71 MON; Pulse Ox 96% ; jp6 04:41 BP 122 / 74 (auto/); jp6 04:41 Pulse 71 MON; Pulse Ox 96% ; jp6 04:46 BP 121 / 72 (auto/); jp6 04:46 Pulse 71 MON; Pulse Ox 96% ; jp6 04:51 BP 120 / 68 (auto/); jp6 04:51 Pulse 70 MON; Pulse Ox 96% ; jp6 04:56 BP 117 / 70 (auto/); jp6 04:56 Pulse 70 MON; Pulse Ox 96% ; jp6 05:01 BP 113 / 71 (auto/); jp6 05:01 Pulse 69 MON; Pulse Ox 96% ; jp6 05:06 BP 122 / 76 (auto/); jp6 05:06 Pulse 70 MON; Pulse Ox 96% ; jp6 05:11 BP 120 / 71 (auto/); jp6 05:11 Pulse 69 MON; Pulse Ox 96% ; jp6 05:27 BP 146 / 67; Pulse 66; Resp 16; Temp 96.7(TE); Pulse Ox 97% on ETT vent; 07/18 22:54 Body Mass Index 34.21 (102.06 kg, 172.72 cm) rs6 Procedures: 01:04 Intubation: Intubated via left nare with 7.0 Fr. ETT. was successful on first attempt. mm11 Ventilated with Ambu bag. Placement verified by CXR, CO2 detector w/ + color change, auscultating bilateral breath sounds, O2 saturation after procedure was 100 %. Direct Visualization of chorina. Patient tolerated well, Patient intubated via ambu-scope. MDM: 0202 23:30 -Blood Culture (Adults Only), peripheral from different site, or from device/port/PICC mm11 etc. if present ordered. 23:30 Lidocaine Liquid 4 % 5 ml Mucous Membrane once; ADMINISTER VIA NEBULIZER ordered. mm11 23:30 IV Saline Lock ordered. mm11 23:30 NS 0.9% 1000 ml IV at 100 mL/hr continuous ordered. mm11 23:30 Solu-MEDROL 125 mg IVP once ordered. mm11 23:30 diphenhydrAMINE 25 mg IVP once ordered. mm11 23:30 Famotidine 10 mg IVPB once over 30 mins; dilute in 50mL of NS ordered. mm11 23:31 CBC with Diff Ordered. EDMS 23:31 BMP Ordered. EDMS 23:31 ESR Ordered. EDMS 23:31 CRP Ordered. EDMS 23:31 -Blood Culture Ordered. EDMS 23:31 Type & Screen Ordered. EDMS 23:34 -Blood Culture (Adults Only), peripheral from different site, or from device/port/PICC mdr etc. if present complete. 23:34 BLOOD CULTURES Ordered. EDMS 02/03 00:03 Transfuse FFP 2 units, ensure FFP ordered in lab ordered. mm11 00:03 Chest, 1 View Ordered. EDMS 00:04 FFP Ordered. EDMS 00:05 BED REQUEST+ADM ordered. EDMS 00:05 Ketamine (1mg/kg - Peds initial dose) 100 mg IVP once ordered. mm11 00:10 Propofol (PF) 25 mcg/kg/min IVPB at calculated rate continuous; titrate to Bullock 2-3 mm11 ordered. 00:24 -Arterial Blood Gas Ordered. EDMS 00:59 VENTILATOR SETTINGS ordered. EDMS 00:59 PORTABLE CHEST X-RAY Ordered. EDMS 00:59 PORTABLE CHEST X-RAY Ordered. EDMS 00:59 PORTABLE CHEST X-RAY Ordered. EDMS 00:59 PORTABLE CHEST X-RAY Ordered. EDMS 00:59 PORTABLE CHEST X-RAY Ordered. EDMS 01:00 PORTABLE CHEST X-RAY Ordered. EDMS 01:00 PORTABLE CHEST X-RAY Ordered. EDMS 01:00 PORTABLE CHEST X-RAY Ordered. EDMS 01:01 Admission / Observation Status ordered. EDMS 01:01 NPO DIET ordered. EDMS 01:01 ARTERIAL BLOOD GAS Ordered. EDMS 01:01 CBC WITH DIFFERENTIAL Ordered. EDMS 01:02 COMPLETE COMPHRENSIVE METABOLI Ordered. EDMS 01:05 Ramirez ordered. jp6 01:15 Midazolam 2 mg IVP once ordered. sls1 01:17 VENTILATOR SETTINGS ordered. EDMS 01:17 Financial registration complete. [facility] 01:23 [facility] Payment Agreement was scanned into [employer] and attached to record. h 01:59 Midazolam 2 mg IVP once ordered. sls1 02:04 CBC with Diff Reviewed. mm11 02:04 BMP Reviewed. mm11 02:04 -Arterial Blood Gas Reviewed. mm11 02:04 ESR Reviewed. mm11 02:04 CRP Reviewed. mm11 02:04 Type & Screen Reviewed. mm11 02:04 Chest, 1 View Reviewed. mm11 04:15 Propofol (PF) 40 mg IVP once ordered. jp6 04:16 Propofol (PF) 40 mg IVP once ordered. jp6 04:17 Midazolam 2 mg IVP once ordered. sls1 05:24 Digital Picture was scanned into [employer] and attached to record. mdr 05:43 MRSA SCREEN Ordered. EDMS Administered Medications: 07/18 00:41 Drug: Solu-MEDROL 125 mg [Solu-Medrol 500 mg intravenous solution (125 mg)] Route: IVP; kas2 Site: left antecubital; 00:42 Drug: diphenhydrAMINE 25 mg [diphenhydramine 50 mg/mL injection solution (0.5 mL)] kas2 Route: IVP; Site: left antecubital; 23:44 Drug: Lidocaine 5 ml [lidocaine 4 % (40 mg/mL) mucosal solution (5 mL)] Route: Mucous jc3 Membrane; 23:45 Drug: NS 0.9% 1000 ml [sodium chloride 0.9 % intravenous solution] Route: IV; Rate: 100 jp6 mL/hr; Site: left antecubital; 23:50 Drug: Famotidine 10 mg [famotidine 10 mg/mL intravenous solution] Route: IVPB; Infused kas2 Over: 30 mins; Site: left antecubital; 07/19 00:08 Drug: Propofol (PF) 2551.5 mcg/min [propofol (PF) 1,000 mg/100 mL (10 mg/mL) jp6 intravenous emulsion] Route: IVPB; Rate: calculated rate; Site: left antecubital; 00:08 Drug: Propofol (PF) 40 mg [propofol (PF) 1,000 mg/100 mL (10 mg/mL) intravenous jp6 emulsion (4 mL)] Route: IVP; Site: left antecubital; 00:09 Drug: Ketamine (1mg/kg - Peds initial dose) 100 mg [ketamine 10 mg/mL injection jp6 solution (10 mL)] Route: IVP; Site: left antecubital; 01:15 Drug: Midazolam 2 mg [midazolam 1 mg/mL injection solution (2 mL)] Route: IVP; Site: [facility] right hand; 01:59 Drug: Midazolam 2 mg [midazolam 1 mg/mL injection solution (2 mL)] Route: IVP; Site: [facility] left hand; 04:15 Drug: Propofol (PF) 40 mg [propofol (PF) 1,000 mg/100 mL (10 mg/mL) intravenous jp6 emulsion (4 mL)] {Note: given by Dr. Valdez.} Route: IVP; Site: left antecubital; 04:17 Drug: Midazolam 2 mg [midazolam 1 mg/mL injection solution (2 mL)] Route: IVP; Site: [facility] left hand; Signatures: Dispatcher [employer] EDMS Rosaline Holbrook RN RN jo3 Maynard, Matthew, DO mm11 Suha Colby RN RN [facility]1 Kylie Morris [facility] Joshua Argueta, AIR BRAKE WORKER AIR BRAKE WORKER Anita Tee RN RN jp6 Vicente Hopkins RN RN sa Colello, Joseph jc3 Leyla Guerra RN kas2 The chart was reviewed and I authenticate all verbal orders and agree with the evaluation and treatment provided.Corrections: (The following items were deleted from the chart) 00:14 00:03 Chest, 1 view ordered. EDMS EDMS Attachments: 01:23 [facility] Payment Agreement [facility] MTDD
[2016-07-19] MEDS: diphenhydrAMINE INJ 50MG/ML VIAL (J1200) IV SCH ×3 (06:11→17:10)
[2016-07-19] MEDS: D5W/0.45% SODIUM CHLORIDE 1,000 ML IV SCH ×2 (06:12→17:10)
[2016-07-19 06:16] LABS: BASO % 0.2 % (0.0-1.0); EOS % 0.2 % (0.0-3.0); LARGE UNSTAINED CELL # 0.1 K/mm3 (0.0-0.4); LARGE UNSTAINED CELL % 0.8 % (0.0-4.0); LYMPH # 0.6 K/mm3 (1.5-4.5); LYMPH % 8.6 % (24.0-44.0); MEAN CORPUSCULAR HGB CONC 33.1 g/dl (32.0-36.5); MEAN CORPUSCULAR VOLUME 96.7 fl (80.0-96.0); MONO # 0.1 K/mm3 (0.0-0.8); MONO % 1.9 % (0.0-5.0); NEUTROPHILS # 6.5 K/mm3 (1.8-7.7); NEUTROPHILS % 88.3 % (36.0-66.0); PLATELET COUNT, AUTOMATED 163 k/mm3 (150-450); RED CELL DISTRIBUTION WIDTH 12.9 % (11.5-14.5); WHITE BLOOD COUNT 7.4 K/mm3 (4.0-10.0)
[2016-07-19 06:29] LABS: ALBUMIN 3.9 GM/DL (3.2-5.2); ALBUMIN/GLOBULIN RATIO 1.34 (1.00-1.93); ALKALINE PHOSPHATASE 52 U/L (45-117); ALT/SGPT 36 U/L (12-78); ANION GAP 7 MEQ/L (8-16); AST/SGOT 27 U/L (15-37); BILIRUBIN,TOTAL 0.2 MG/DL (0.2-1.0); BLOOD UREA NITROGEN 28 MG/DL (7-18); CALCIUM LEVEL 8.3 MG/DL (8.8-10.2); CARBON DIOXIDE LEVEL 27 MEQ/L (21-32); CHLORIDE LEVEL 106 MEQ/L (98-107); CREATININE FOR GFR 0.98 MG/DL (0.70-1.30); GLOMERULAR FILTRATION RATE > 60.0 (>49); GLUCOSE, FASTING 166 MG/DL (80-110); POTASSIUM SERUM 4.2 MEQ/L (3.5-5.1); SODIUM LEVEL 140 MEQ/L (136-145); TOTAL PROTEIN 6.8 GM/DL (6.4-8.2)
[2016-07-19] MEDS: IPRATROPIUM 0.5MG/ALBUTEROL 2.5MG INH SOL UD 3ML (DUONEB)(J7620) NEB SCH ×4 (07:36→19:42)
[2016-07-19] MEDS: CHLORHEXIDINE GLUCONATE 0.12 % 15ML UDC (PERIDEX ORAL RINSE) MT SCH ×2 (08:31→22:31)
[2016-07-19] MEDS: PANTOPRAZOLE 40MG INJ (PROTONIX) (C9113) IV SCH (08:31)
[2016-07-19] MEDS: methylPREDNISolone INJ 125 MG/2 ML VIAL (J2930) IV SCH ×2 (08:32→15:55)
[2016-07-19] MEDS: PROPOFOL 1,000 MG in APPROPRIATE DILUENT 1 EA IV SCH ×5 (09:56→22:31)
[2016-07-20] VITALS (15 sets, daily range): BP systolic 109–146; BP diastolic 56–81; O2SAT 97
[2016-07-20] MEDS: diphenhydrAMINE INJ 50MG/ML VIAL (J1200) IV SCH ×4 (00:07→18:00)
[2016-07-20] MEDS: methylPREDNISolone INJ 125 MG/2 ML VIAL (J2930) IV SCH ×2 (00:07→07:26)
[2016-07-20] MEDS: PROPOFOL 1,000 MG in APPROPRIATE DILUENT 1 EA IV SCH ×3 (01:23→07:26)
[2016-07-20] MEDS: D5W/0.45% SODIUM CHLORIDE 1,000 ML IV SCH (04:17)
[2016-07-20 05:12] LABS: LARGE UNSTAINED CELL # 0.1 K/mm3 (0.0-0.4); LARGE UNSTAINED CELL % 0.5 % (0.0-4.0); LYMPH # 0.5 K/mm3 (1.5-4.5); LYMPH % 4.4 % (24.0-44.0); MEAN CORPUSCULAR HEMOGLOBIN 32.4 pg (27.0-33.0); MEAN CORPUSCULAR HGB CONC 33.1 g/dl (32.0-36.5); MEAN CORPUSCULAR VOLUME 97.9 fl (80.0-96.0); MONO # 0.4 K/mm3 (0.0-0.8); NEUTROPHILS # 10.8 K/mm3 (1.8-7.7); NEUTROPHILS % 92.1 % (36.0-66.0); PLATELET COUNT, AUTOMATED 192 k/mm3 (150-450); RED CELL DISTRIBUTION WIDTH 13.1 % (11.5-14.5); WHITE BLOOD COUNT 11.7 K/mm3 (4.0-10.0)
[2016-07-20 05:21] LABS: ALBUMIN 3.5 GM/DL (3.2-5.2); ALBUMIN/GLOBULIN RATIO 1.21 (1.00-1.93); ALKALINE PHOSPHATASE 47 U/L (45-117); ALT/SGPT 31 U/L (12-78); ANION GAP 9 MEQ/L (8-16); AST/SGOT 29 U/L (15-37); BILIRUBIN,TOTAL 0.2 MG/DL (0.2-1.0); BLOOD UREA NITROGEN 19 MG/DL (7-18); CARBON DIOXIDE LEVEL 26 MEQ/L (21-32); CHLORIDE LEVEL 110 MEQ/L (98-107); CREATININE FOR GFR 0.78 MG/DL (0.70-1.30); GLOMERULAR FILTRATION RATE > 60.0 (>49); GLUCOSE, FASTING 154 MG/DL (80-110); POTASSIUM SERUM 4.1 MEQ/L (3.5-5.1); SODIUM LEVEL 145 MEQ/L (136-145); TOTAL PROTEIN 6.4 GM/DL (6.4-8.2)
[2016-07-20 05:58] LABS: ABG BASE EXCESS 0.9 (-2.0-2.0); ABG HCO3 25.6 MEQ/L (22.0-26.0); ABG PARTIAL PRESSURE CO2 41.2 mmHg (35.0-45.0); ABG PARTIAL PRESSURE O2 82.7 mmHg (75.0-100.0); ABG STANDARD HCO3 25.3 MEQ/L (22.0-26.0); ABG TOTAL CO2 26.9 MEQ/L (23.0-31.0); ABG pH (ARTERIAL) 7.412 UNITS (7.350-7.450)
--- NOTE | 2016-07-20 08:04 | REP ---
PORTABLE CHEST X-RAY: Sitting AP view. HISTORY: Endotracheal tube. Comparison study July 19, 2016. FINDINGS: EKG monitoring electrodes and oxygen delivery tubing are seen. An endotracheal tube is noted in good position at the level of the transverse aorta. The lungs are better inflated. No definite infiltrate. Some discoid atelectasis is suspected in the left base. Pleural angles are sharp. Heart is not felt to be enlarged. Signed by Scooter Chand MD 07/20/2016 10:05 A
[2016-07-20] MEDS: IPRATROPIUM 0.5MG/ALBUTEROL 2.5MG INH SOL UD 3ML (DUONEB)(J7620) NEB SCH (08:25)
[2016-07-20] MEDS: CHLORHEXIDINE GLUCONATE 0.12 % 15ML UDC (PERIDEX ORAL RINSE) MT SCH (09:00)
[2016-07-20] MEDS: PANTOPRAZOLE 40MG INJ (PROTONIX) (C9113) IV SCH (09:00)
[2016-07-20] MEDS ORDERED: LIDOCAINE 1% MDV 20ML VIAL As Ordered ONE (10:06)
[2016-07-20] MEDS: ASPIRIN 325 MG TAB PO SCH (12:18)
[2016-07-20] MEDS: CLOPIDOGREL 75 MG TAB PO SCH (12:19)
[2016-07-20] MEDS ORDERED: LIDOCAINE 1% MDV 20ML VIAL SC ONE (12:30)
--- NOTE | 2016-07-20 12:43 | CCN ---
DATE: 07/20/2016 CRITICAL CARE NOTE The patient is seen in the intensive care unit, intubated, mechanically ventilated, critically ill. Temperature 97, pulse rate 76, respirations 16, blood pressure 123/63. Intake and output for the past 24 hours, 2280 in, 3450 out, since midnight 670 in, 200 out. At bedside he is sedate, intubated. Responds appropriately when sedation is weaned for a sedation holiday, and a reasonably uneventful night. His oral mucosa is pink. Nasotracheal tube is in left nares. There is no air leak. Neck is supple. Heart sounds regular without appreciable murmur. Breath sounds are coarse, clear. Abdomen is soft and the extremities are showing pulses times four. There is no skin changes. IV is infusing in the right arm. DIAGNOSTIC STUDIES: Sodium is 145, potassium 4.1, chloride 110, CO2 26, BUN 19, creatinine 0.78, glucose 154, white cell count is 11.7 with 93% neutrophils, hemoglobin 13.5, hematocrit 40.7, platelet count 192,000. Arterial blood gases show pH 7.42, pCO2 of 42, pO2 82 on mechanical ventilatory support. IMAGING STUDIES: Were reviewed. The chest x-ray shows endotracheal tube in good position. There is new infiltrate. Reasonable inflation in the lung ahn bilaterally. The primary problem requiring critical attention is acute respiratory failure. We will wean the patient to pressure support. Laryngeal edema, angioedema. We will assess the upper air with laryngoscopy. If the edema has cleared, we will discontinue steroids and proceed with extubation. Coronary artery disease. The patient had been on aspirin and Plavix, it was held during this event, pending extubation it will be restarted. Hypertension. Blood pressures have been acceptable. We will restart oral antihypertensives once extubated. Deep venous thrombosis (DVT) and ulcer prophylaxis are in place. I have updated the patient's spouse at bedside. The patient's condition remains critical, prognosis is guarded. 47 minutes spent in the provision of bedside critical care and coordination.
--- NOTE | 2016-07-20 13:51 | RO ---
DATE OF PROCEDURE: 07/20/2016 PREOPERATIVE DIAGNOSIS: Laryngeal edema. POSTOPERATIVE DIAGNOSIS: Laryngeal edema. PROCEDURE PERFORMED: Laryngoscopy using a fiberoptic scope. SURGEON: Dr. Yan Muller TABLET COATER: ANESTHESIA: PROCEDURE NOTE: The patient was seen and the procedure explained to the patient's spouse as were all of the possible complications pertaining thereto. Consent was obtained. The patient was intubated and mechanically ventilated through the left nasotracheal tube at the time of the procedure. The right nares was topically anesthetized with lidocaine and a small fiberoptic scope placed in through the right nares and into the posterior pharynx. Copious secretions were suctioned free. The nasotracheal tube was visualized and followed to the level of the glottis. There was some fullness in the anterior aspect of the upper airway, but significant improvement in patency was appreciated from the imaging studies performed in the emergency department. Secretions were suctioned free from around the glottis and saline was used to lavage the larynx. When no further secretions could be obtained and patency was documented, the scope was removed out through the patient's nose. He tolerated the procedure well and suffered no apparent complication.
[2016-07-21] VITALS: BP 130/60
[2016-07-21] MEDS: diphenhydrAMINE INJ 50MG/ML VIAL (J1200) IV SCH ×2 (00:26→05:52)
[2016-07-21 04:00] VITALS: BP 127/67
--- NOTE | 2016-07-21 06:45 | EDDOCDS ---
Physician Documentation [facility] Name: Brent Harris Age: 65 yrs Sex: Male : 1950 Arrival Date: 07/18/2016 Time: 22:53 Bed 2 Private MD: Eduard Disposition: 07/19/16 00:22 Hospitalization ordered by Yan Muller for Inpatient Admission. Preliminary diagnosis is Shortness of breath - AIRWAY ANGIOEDEMA, ACEI INDUCED.. - Bed requested for M ICU. - Status is Inpatient Admission. sls1 - Condition is Stable. - Problem is an acute exacerbation. - Symptoms have improved. Historical: - Allergies: No known drug Allergies; - Home Meds: 1. lisinopril 2.5 mg Oral tab 1 tab once daily 2. Crestor 20 mg Oral tab 1 tab once daily 3. atenolol 25 mg Oral tab 1 tab once daily 4. Plavix 75 mg Oral tab 1 tab once daily 5. aspirin 81 mg Oral tab 1 tab once daily 6. zolpidem 10 mg Oral tab 1 tab once daily 7. Tylenol 325 mg Oral tab 2 tabs every 6 hours 8. gabapentin 300 mg Oral tab twice a day 9. Fish Oil 1200 Oral daily 10. vitamin B complex oral cap daily 11. timolol maleate 0.5 % Opht drpd 1 drop once daily - PMHx: WI; HTN; - PSHx: Knee surgery; back surgery; thumb surgery; foot surgery; Adenoidectomy; Tonsillectomy; TYSON carpal tunnel; knee replacements TYSON; cardiac stents x2; - Social history: Smoking status: Patient states former smoker of tobacco. No barriers to communication noted, The patient speaks fluent Bermudian, Speaks appropriately for age. - Family history: Not pertinent. - : The pt / caregiver states he / she is not on anticoagulants. Home medication list is obtained from the patient, family members. - Exposure Risk Screening:: None identified. Vital Signs: 07/18 22:54 BP 154 / 86 RA Sitting (auto/lg); Pulse 57; Resp 18; Temp 97.3(O); Pulse Ox 96% on R/A; rs6 Weight 102.06 kg / 225 lbs (R); Height 5 ft. 8 in. (172.72 cm) (R); 23:35 Pulse 65 MON; Pulse Ox 98% ; jp6 23:36 Pulse 62 MON; Pulse Ox 98% ; jp6 23:54 BP 199 / 92 (auto/); jp6 23:54 Pulse 67 MON; Pulse Ox 97% ; jp6 23:59 BP 225 / 112 (auto/); jp6 23:59 Pulse 108 MON; Pulse Ox 95% ; jp6 07/19 00:08 BP 167 / 115 (auto/); jp6 00:08 Pulse 96 MON; Pulse Ox 98% ; jp6 00:13 BP 154 / 77 (auto/); jp6 00:13 Pulse 94 MON; Pulse Ox 85% ; jp6 00:16 BP 128 / 63 (auto/); jp6 00:16 Pulse 79 MON; Pulse Ox 99% ; jp6 00:21 BP 111 / 69 (auto/); jp6 00:21 Pulse 78 MON; Pulse Ox 99% ; jp6 00:26 BP 99 / 73 (auto/); jp6 00:26 Pulse 77 MON; Pulse Ox 97% ; jp6 00:31 BP 115 / 61 (auto/); jp6 00:31 Pulse 74 MON; Pulse Ox 97% ; jp6 00:36 BP 116 / 76 (auto/); jp6 00:36 Pulse 79 MON; Pulse Ox 96% ; jp6 00:41 BP 114 / 57 (auto/); jp6 00:41 Pulse 69 MON; Pulse Ox 97% ; jp6 00:46 BP 125 / 68 (auto/); jp6 00:46 Pulse 75 MON; Pulse Ox 95% ; jp6 00:51 BP 131 / 73 (auto/); jp6 00:51 Pulse 65 MON; Pulse Ox 94% ; jp6 00:56 BP 134 / 97 (auto/); jp6 00:56 Pulse 65 MON; Pulse Ox 98% ; jp6 01:01 BP 134 / 75 (auto/); jp6 01:01 Pulse 66 MON; Pulse Ox 97% ; jp6 01:06 BP 123 / 59 (auto/); jp6 01:06 Pulse 64 MON; Pulse Ox 97% ; jp6 01:11 BP 142 / 69 (auto/); jp6 01:11 Pulse 62 MON; Pulse Ox 96% ; jp6 01:16 BP 136 / 59 (auto/); jp6 01:16 Pulse 66 MON; Pulse Ox 96% ; jp6 01:16 Resp 16; Temp 96.6(TE); jp6 01:21 BP 111 / 58 (auto/); jp6 01:21 Pulse 67 MON; Pulse Ox 96% ; jp6 01:26 BP 108 / 59 (auto/); jp6 01:26 Pulse 64 MON; Pulse Ox 96% ; jp6 01:31 BP 105 / 55 (auto/); jp6 01:31 Pulse 65 MON; Pulse Ox 96% ; jp6 01:36 BP 121 / 57 (auto/); jp6 01:36 Pulse 64 MON; Pulse Ox 96% ; jp6 01:41 BP 119 / 59 (auto/); jp6 01:41 Pulse 63 MON; Pulse Ox 96% ; jp6 01:46 BP 114 / 68 (auto/); jp6 01:46 Pulse 65 MON; Pulse Ox 96% ; jp6 01:51 BP 129 / 76 (auto/); jp6 01:51 Pulse 65 MON; Pulse Ox 96% ; jp6 01:56 BP 150 / 79 (auto/); jp6 01:56 Pulse 65 MON; Pulse Ox 96% ; jp6 02:01 BP 125 / 60 (auto/); jp6 02:01 Pulse 67 MON; Pulse Ox 97% ; jp6 02:06 BP 131 / 60 (auto/); jp6 02:06 Pulse 67 MON; Pulse Ox 97% ; jp6 02:11 BP 117 / 62 (auto/); jp6 02:11 Pulse 68 MON; Pulse Ox 97% ; jp6 02:15 Pulse 67 MON; Pulse Ox 97% ; jp6 02:16 BP 121 / 58 (auto/); jp6 02:16 Pulse 68 MON; Pulse Ox 97% ; jp6 02:21 BP 122 / 57 (auto/); jp6 02:21 Pulse 68 MON; Pulse Ox 97% ; jp6 02:26 BP 127 / 61 (auto/); jp6 02:26 Pulse 68 MON; Pulse Ox 97% ; jp6 02:31 BP 125 / 62 (auto/); jp6 02:31 Pulse 66 MON; Pulse Ox 97% ; jp6 02:36 BP 129 / 67 (auto/); jp6 02:36 Pulse 67 MON; Pulse Ox 97% ; jp6 02:40 Temp 96.3; jp6 02:41 BP 137 / 66 (auto/); jp6 02:41 Pulse 67 MON; Pulse Ox 98% ; jp6 02:46 BP 140 / 62 (auto/); jp6 02:46 Pulse 67 MON; Pulse Ox 98% ; jp6 02:51 BP 151 / 78 (auto/); jp6 02:51 Pulse 67 MON; Pulse Ox 100% ; jp6 02:56 BP 152 / 75 (auto/); jp6 02:56 Pulse 64 MON; Pulse Ox 100% ; jp6 03:01 BP 141 / 66 (auto/); jp6 03:01 Pulse 65 MON; Pulse Ox 99% ; jp6 03:06 BP 150 / 71 (auto/); jp6 03:06 Pulse 65 MON; Pulse Ox 97% ; jp6 03:11 BP 134 / 73 (auto/); jp6 03:11 Pulse 67 MON; Pulse Ox 96% ; jp6 03:16 BP 129 / 73 (auto/); jp6 03:16 Pulse 66 MON; Pulse Ox 94% ; jp6 03:20 Pulse 67 MON; Pulse Ox 95% ; jp6 03:21 BP 128 / 77 (auto/); jp6 03:21 Pulse 66 MON; Pulse Ox 95% ; jp6 03:26 BP 128 / 78 (auto/); jp6 03:26 Pulse 67 MON; Pulse Ox 94% ; jp6 03:31 Pulse 66 MON; Pulse Ox 94% ; jp6 03:31 BP 125 / 73 (auto/); jp6 03:32 Pulse 66 MON; Pulse Ox 94% ; jp6 03:36 BP 130 / 70 (auto/); jp6 03:36 Pulse 66 MON; Pulse Ox 93% ; jp6 03:41 BP 124 / 72 (auto/); jp6 03:41 Pulse 68 MON; Pulse Ox 97% ; jp6 03:46 BP 126 / 76 (auto/); jp6 03:46 Pulse 67 MON; Pulse Ox 97% ; jp6 03:51 BP 124 / 78 (auto/); jp6 03:51 Pulse 68 MON; Pulse Ox 97% ; jp6 03:56 BP 126 / 78 (auto/); jp6 03:56 Pulse 67 MON; Pulse Ox 97% ; jp6 03:56 Resp 16; Temp 96.6(TE); jp6 04:01 BP 140 / 74 (auto/); jp6 04:01 Pulse 66 MON; Pulse Ox 98% ; jp6 04:06 BP 149 / 77 (auto/); jp6 04:06 Pulse 67 MON; Pulse Ox 99% ; jp6 04:11 BP 160 / 81 (auto/); jp6 04:12 Pulse 69 MON; Pulse Ox 98% ; jp6 04:13 Pulse 72 MON; Pulse Ox 97% ; jp6 04:16 BP 134 / 78 (auto/); jp6 04:16 Pulse 75 MON; Pulse Ox 97% ; jp6 04:21 Pulse 74 MON; Pulse Ox 97% ; jp6 04:21 BP 130 / 77 (auto/); jp6 04:26 BP 121 / 75 (auto/); jp6 04:26 Pulse 75 MON; Pulse Ox 96% ; jp6 04:31 BP 124 / 76 (auto/); jp6 04:31 Pulse 73 MON; Pulse Ox 96% ; jp6 04:36 BP 119 / 74 (auto/); jp6 04:36 Pulse 71 MON; Pulse Ox 96% ; jp6 04:41 BP 122 / 74 (auto/); jp6 04:41 Pulse 71 MON; Pulse Ox 96% ; jp6 04:46 BP 121 / 72 (auto/); jp6 04:46 Pulse 71 MON; Pulse Ox 96% ; jp6 04:51 BP 120 / 68 (auto/); jp6 04:51 Pulse 70 MON; Pulse Ox 96% ; jp6 04:56 BP 117 / 70 (auto/); jp6 04:56 Pulse 70 MON; Pulse Ox 96% ; jp6 05:01 BP 113 / 71 (auto/); jp6 05:01 Pulse 69 MON; Pulse Ox 96% ; jp6 05:06 BP 122 / 76 (auto/); jp6 05:06 Pulse 70 MON; Pulse Ox 96% ; jp6 05:11 BP 120 / 71 (auto/); jp6 05:11 Pulse 69 MON; Pulse Ox 96% ; jp6 05:27 BP 146 / 67; Pulse 66; Resp 16; Temp 96.7(TE); Pulse Ox 97% on ETT vent; 07/18 22:54 Body Mass Index 34.21 (102.06 kg, 172.72 cm) rs6 Procedures: 01:04 Intubation: Intubated via left nare with 7.0 Fr. ETT. was successful on first attempt. mm11 Ventilated with Ambu bag. Placement verified by CXR, CO2 detector w/ + color change, auscultating bilateral breath sounds, O2 saturation after procedure was 100 %. Direct Visualization of chorina. Patient tolerated well, Patient intubated via ambu-scope. MDM: 0202 23:30 -Blood Culture (Adults Only), peripheral from different site, or from device/port/PICC mm11 etc. if present ordered. 23:30 Lidocaine Liquid 4 % 5 ml Mucous Membrane once; ADMINISTER VIA NEBULIZER ordered. mm11 23:30 IV Saline Lock ordered. mm11 23:30 NS 0.9% 1000 ml IV at 100 mL/hr continuous ordered. mm11 23:30 Solu-MEDROL 125 mg IVP once ordered. mm11 23:30 diphenhydrAMINE 25 mg IVP once ordered. mm11 23:30 Famotidine 10 mg IVPB once over 30 mins; dilute in 50mL of NS ordered. mm11 23:31 CBC with Diff Ordered. EDMS 23:31 BMP Ordered. EDMS 23:31 ESR Ordered. EDMS 23:31 CRP Ordered. EDMS 23:31 -Blood Culture Ordered. EDMS 23:31 Type & Screen Ordered. EDMS 23:34 -Blood Culture (Adults Only), peripheral from different site, or from device/port/PICC mdr etc. if present complete. 23:34 BLOOD CULTURES Ordered. EDMS 02/03 00:03 Transfuse FFP 2 units, ensure FFP ordered in lab ordered. mm11 00:03 Chest, 1 View Ordered. EDMS 00:04 FFP Ordered. EDMS 00:05 BED REQUEST+ADM ordered. EDMS 00:05 Ketamine (1mg/kg - Peds initial dose) 100 mg IVP once ordered. mm11 00:10 Propofol (PF) 25 mcg/kg/min IVPB at calculated rate continuous; titrate to Bullock 2-3 mm11 ordered. 00:24 -Arterial Blood Gas Ordered. EDMS 00:59 VENTILATOR SETTINGS ordered. EDMS 00:59 PORTABLE CHEST X-RAY Ordered. EDMS 00:59 PORTABLE CHEST X-RAY Ordered. EDMS 00:59 PORTABLE CHEST X-RAY Ordered. EDMS 00:59 PORTABLE CHEST X-RAY Ordered. EDMS 00:59 PORTABLE CHEST X-RAY Ordered. EDMS 01:00 PORTABLE CHEST X-RAY Ordered. EDMS 01:00 PORTABLE CHEST X-RAY Ordered. EDMS 01:00 PORTABLE CHEST X-RAY Ordered. EDMS 01:01 Admission / Observation Status ordered. EDMS 01:01 NPO DIET ordered. EDMS 01:01 ARTERIAL BLOOD GAS Ordered. EDMS 01:01 CBC WITH DIFFERENTIAL Ordered. EDMS 01:02 COMPLETE COMPHRENSIVE METABOLI Ordered. EDMS 01:05 Ramirez ordered. jp6 01:15 Midazolam 2 mg IVP once ordered. sls1 01:17 VENTILATOR SETTINGS ordered. EDMS 01:17 Financial registration complete. [facility] 01:23 [facility] Payment Agreement was scanned into [employer] and attached to record. [facility] 01:59 Midazolam 2 mg IVP once ordered. sls1 02:04 CBC with Diff Reviewed. mm11 02:04 BMP Reviewed. mm11 02:04 -Arterial Blood Gas Reviewed. mm11 02:04 ESR Reviewed. mm11 02:04 CRP Reviewed. mm11 02:04 Type & Screen Reviewed. mm11 02:04 Chest, 1 View Reviewed. mm11 04:15 Propofol (PF) 40 mg IVP once ordered. jp6 04:16 Propofol (PF) 40 mg IVP once ordered. jp6 04:17 Midazolam 2 mg IVP once ordered. sls1 05:24 Digital Picture was scanned into [employer] and attached to record. mdr 05:43 MRSA SCREEN Ordered. EDMS 13:49 T-Sheet-- Draft Copy was scanned into [employer] and attached to record. gb 13:49 Consents was scanned into [employer] and attached to record. 02/ 04:10 CLEAR LIQUIDS DIET ordered. EDMS 04:10 REGULAR DIET ordered. EDMS Administered Medications: 07/18 00:41 Drug: Solu-MEDROL 125 mg [Solu-Medrol 500 mg intravenous solution (125 mg)] Route: IVP; kas2 Site: left antecubital; 00:42 Drug: diphenhydrAMINE 25 mg [diphenhydramine 50 mg/mL injection solution (0.5 mL)] kas2 Route: IVP; Site: left antecubital; 23:44 Drug: Lidocaine 5 ml [lidocaine 4 % (40 mg/mL) mucosal solution (5 mL)] Route: Mucous jc3 Membrane; 23:45 Drug: NS 0.9% 1000 ml [sodium chloride 0.9 % intravenous solution] Route: IV; Rate: 100 jp6 mL/hr; Site: left antecubital; 23:50 Drug: Famotidine 10 mg [famotidine 10 mg/mL intravenous solution] Route: IVPB; Infused kas2 Over: 30 mins; Site: left antecubital; 07/19 00:08 Drug: Propofol (PF) 2551.5 mcg/min [propofol (PF) 1,000 mg/100 mL (10 mg/mL) jp6 intravenous emulsion] Route: IVPB; Rate: calculated rate; Site: left antecubital; 00:08 Drug: Propofol (PF) 40 mg [propofol (PF) 1,000 mg/100 mL (10 mg/mL) intravenous jp6 emulsion (4 mL)] Route: IVP; Site: left antecubital; 00:09 Drug: Ketamine (1mg/kg - Peds initial dose) 100 mg [ketamine 10 mg/mL injection jp6 solution (10 mL)] Route: IVP; Site: left antecubital; 01:15 Drug: Midazolam 2 mg [midazolam 1 mg/mL injection solution (2 mL)] Route: IVP; Site: [facility] right hand; 01:59 Drug: Midazolam 2 mg [midazolam 1 mg/mL injection solution (2 mL)] Route: IVP; Site: [facility] left hand; 04:15 Drug: Propofol (PF) 40 mg [propofol (PF) 1,000 mg/100 mL (10 mg/mL) intravenous jp6 emulsion (4 mL)] {Note: given by Dr. Valdez.} Route: IVP; Site: left antecubital; 04:17 Drug: Midazolam 2 mg [midazolam 1 mg/mL injection solution (2 mL)] Route: IVP; Site: [facility] left hand; Signatures: Dispatcher [employer] EDSD Lor Martinez, Reg Reg Rosaline Cobb,RN RN scott3 Drew Valdez, DO mm11 Suha Colby RN RN sls1 Kylie Morris Mitchell, INSPECTION MANAGER INSPECTION MANAGER Anita Tee RN RN jp6 Vicente Hopkins RN RN sa Colello, Joseph jc3 Leyla Guerra RN kas2 The chart was reviewed and I authenticate all verbal orders and agree with the evaluation and treatment provided.Corrections: (The following items were deleted from the chart) 00:14 00:03 Chest, 1 view ordered. EDMS EDMS Attachments: 01:23 [facility] [place] Payment Agreement [facility] 13:49 T-Sheet-- Draft Copy gb Chart Complete MTDD
--- NOTE | 2016-07-21 06:45 | EDDOCDS ---
Physician Documentation [facility] Name: Brent Harris Age: 65 yrs Sex: Male : 1950 Arrival Date: 07/18/2016 Time: 22:53 Bed 2 Private MD: Eduard Disposition: 07/19/16 00:22 Hospitalization ordered by Yan Muller for Inpatient Admission. Preliminary diagnosis is Shortness of breath - AIRWAY ANGIOEDEMA, ACEI INDUCED.. - Bed requested for M ICU. - Status is Inpatient Admission. sls1 - Condition is Stable. - Problem is an acute exacerbation. - Symptoms have improved. Historical: - Allergies: No known drug Allergies; - Home Meds: 1. lisinopril 2.5 mg Oral tab 1 tab once daily 2. Crestor 20 mg Oral tab 1 tab once daily 3. atenolol 25 mg Oral tab 1 tab once daily 4. Plavix 75 mg Oral tab 1 tab once daily 5. aspirin 81 mg Oral tab 1 tab once daily 6. zolpidem 10 mg Oral tab 1 tab once daily 7. Tylenol 325 mg Oral tab 2 tabs every 6 hours 8. gabapentin 300 mg Oral tab twice a day 9. Fish Oil 1200 Oral daily 10. vitamin B complex oral cap daily 11. timolol maleate 0.5 % Opht drpd 1 drop once daily - PMHx: OH; HTN; - PSHx: Knee surgery; back surgery; thumb surgery; foot surgery; Adenoidectomy; Tonsillectomy; TYSON carpal tunnel; knee replacements TYSON; cardiac stents x2; - Social history: Smoking status: Patient states former smoker of tobacco. No barriers to communication noted, The patient speaks fluent Dutch, Speaks appropriately for age. - Family history: Not pertinent. - : The pt / caregiver states he / she is not on anticoagulants. Home medication list is obtained from the patient, family members. - Exposure Risk Screening:: None identified. Vital Signs: 07/18 22:54 BP 154 / 86 RA Sitting (auto/lg); Pulse 57; Resp 18; Temp 97.3(O); Pulse Ox 96% on R/A; rs6 Weight 102.06 kg / 225 lbs (R); Height 5 ft. 8 in. (172.72 cm) (R); 23:35 Pulse 65 MON; Pulse Ox 98% ; jp6 23:36 Pulse 62 MON; Pulse Ox 98% ; jp6 23:54 BP 199 / 92 (auto/); jp6 23:54 Pulse 67 MON; Pulse Ox 97% ; jp6 23:59 BP 225 / 112 (auto/); jp6 23:59 Pulse 108 MON; Pulse Ox 95% ; jp6 07/19 00:08 BP 167 / 115 (auto/); jp6 00:08 Pulse 96 MON; Pulse Ox 98% ; jp6 00:13 BP 154 / 77 (auto/); jp6 00:13 Pulse 94 MON; Pulse Ox 85% ; jp6 00:16 BP 128 / 63 (auto/); jp6 00:16 Pulse 79 MON; Pulse Ox 99% ; jp6 00:21 BP 111 / 69 (auto/); jp6 00:21 Pulse 78 MON; Pulse Ox 99% ; jp6 00:26 BP 99 / 73 (auto/); jp6 00:26 Pulse 77 MON; Pulse Ox 97% ; jp6 00:31 BP 115 / 61 (auto/); jp6 00:31 Pulse 74 MON; Pulse Ox 97% ; jp6 00:36 BP 116 / 76 (auto/); jp6 00:36 Pulse 79 MON; Pulse Ox 96% ; jp6 00:41 BP 114 / 57 (auto/); jp6 00:41 Pulse 69 MON; Pulse Ox 97% ; jp6 00:46 BP 125 / 68 (auto/); jp6 00:46 Pulse 75 MON; Pulse Ox 95% ; jp6 00:51 BP 131 / 73 (auto/); jp6 00:51 Pulse 65 MON; Pulse Ox 94% ; jp6 00:56 BP 134 / 97 (auto/); jp6 00:56 Pulse 65 MON; Pulse Ox 98% ; jp6 01:01 BP 134 / 75 (auto/); jp6 01:01 Pulse 66 MON; Pulse Ox 97% ; jp6 01:06 BP 123 / 59 (auto/); jp6 01:06 Pulse 64 MON; Pulse Ox 97% ; jp6 01:11 BP 142 / 69 (auto/); jp6 01:11 Pulse 62 MON; Pulse Ox 96% ; jp6 01:16 BP 136 / 59 (auto/); jp6 01:16 Pulse 66 MON; Pulse Ox 96% ; jp6 01:16 Resp 16; Temp 96.6(TE); jp6 01:21 BP 111 / 58 (auto/); jp6 01:21 Pulse 67 MON; Pulse Ox 96% ; jp6 01:26 BP 108 / 59 (auto/); jp6 01:26 Pulse 64 MON; Pulse Ox 96% ; jp6 01:31 BP 105 / 55 (auto/); jp6 01:31 Pulse 65 MON; Pulse Ox 96% ; jp6 01:36 BP 121 / 57 (auto/); jp6 01:36 Pulse 64 MON; Pulse Ox 96% ; jp6 01:41 BP 119 / 59 (auto/); jp6 01:41 Pulse 63 MON; Pulse Ox 96% ; jp6 01:46 BP 114 / 68 (auto/); jp6 01:46 Pulse 65 MON; Pulse Ox 96% ; jp6 01:51 BP 129 / 76 (auto/); jp6 01:51 Pulse 65 MON; Pulse Ox 96% ; jp6 01:56 BP 150 / 79 (auto/); jp6 01:56 Pulse 65 MON; Pulse Ox 96% ; jp6 02:01 BP 125 / 60 (auto/); jp6 02:01 Pulse 67 MON; Pulse Ox 97% ; jp6 02:06 BP 131 / 60 (auto/); jp6 02:06 Pulse 67 MON; Pulse Ox 97% ; jp6 02:11 BP 117 / 62 (auto/); jp6 02:11 Pulse 68 MON; Pulse Ox 97% ; jp6 02:15 Pulse 67 MON; Pulse Ox 97% ; jp6 02:16 BP 121 / 58 (auto/); jp6 02:16 Pulse 68 MON; Pulse Ox 97% ; jp6 02:21 BP 122 / 57 (auto/); jp6 02:21 Pulse 68 MON; Pulse Ox 97% ; jp6 02:26 BP 127 / 61 (auto/); jp6 02:26 Pulse 68 MON; Pulse Ox 97% ; jp6 02:31 BP 125 / 62 (auto/); jp6 02:31 Pulse 66 MON; Pulse Ox 97% ; jp6 02:36 BP 129 / 67 (auto/); jp6 02:36 Pulse 67 MON; Pulse Ox 97% ; jp6 02:40 Temp 96.3; jp6 02:41 BP 137 / 66 (auto/); jp6 02:41 Pulse 67 MON; Pulse Ox 98% ; jp6 02:46 BP 140 / 62 (auto/); jp6 02:46 Pulse 67 MON; Pulse Ox 98% ; jp6 02:51 BP 151 / 78 (auto/); jp6 02:51 Pulse 67 MON; Pulse Ox 100% ; jp6 02:56 BP 152 / 75 (auto/); jp6 02:56 Pulse 64 MON; Pulse Ox 100% ; jp6 03:01 BP 141 / 66 (auto/); jp6 03:01 Pulse 65 MON; Pulse Ox 99% ; jp6 03:06 BP 150 / 71 (auto/); jp6 03:06 Pulse 65 MON; Pulse Ox 97% ; jp6 03:11 BP 134 / 73 (auto/); jp6 03:11 Pulse 67 MON; Pulse Ox 96% ; jp6 03:16 BP 129 / 73 (auto/); jp6 03:16 Pulse 66 MON; Pulse Ox 94% ; jp6 03:20 Pulse 67 MON; Pulse Ox 95% ; jp6 03:21 BP 128 / 77 (auto/); jp6 03:21 Pulse 66 MON; Pulse Ox 95% ; jp6 03:26 BP 128 / 78 (auto/); jp6 03:26 Pulse 67 MON; Pulse Ox 94% ; jp6 03:31 Pulse 66 MON; Pulse Ox 94% ; jp6 03:31 BP 125 / 73 (auto/); jp6 03:32 Pulse 66 MON; Pulse Ox 94% ; jp6 03:36 BP 130 / 70 (auto/); jp6 03:36 Pulse 66 MON; Pulse Ox 93% ; jp6 03:41 BP 124 / 72 (auto/); jp6 03:41 Pulse 68 MON; Pulse Ox 97% ; jp6 03:46 BP 126 / 76 (auto/); jp6 03:46 Pulse 67 MON; Pulse Ox 97% ; jp6 03:51 BP 124 / 78 (auto/); jp6 03:51 Pulse 68 MON; Pulse Ox 97% ; jp6 03:56 BP 126 / 78 (auto/); jp6 03:56 Pulse 67 MON; Pulse Ox 97% ; jp6 03:56 Resp 16; Temp 96.6(TE); jp6 04:01 BP 140 / 74 (auto/); jp6 04:01 Pulse 66 MON; Pulse Ox 98% ; jp6 04:06 BP 149 / 77 (auto/); jp6 04:06 Pulse 67 MON; Pulse Ox 99% ; jp6 04:11 BP 160 / 81 (auto/); jp6 04:12 Pulse 69 MON; Pulse Ox 98% ; jp6 04:13 Pulse 72 MON; Pulse Ox 97% ; jp6 04:16 BP 134 / 78 (auto/); jp6 04:16 Pulse 75 MON; Pulse Ox 97% ; jp6 04:21 Pulse 74 MON; Pulse Ox 97% ; jp6 04:21 BP 130 / 77 (auto/); jp6 04:26 BP 121 / 75 (auto/); jp6 04:26 Pulse 75 MON; Pulse Ox 96% ; jp6 04:31 BP 124 / 76 (auto/); jp6 04:31 Pulse 73 MON; Pulse Ox 96% ; jp6 04:36 BP 119 / 74 (auto/); jp6 04:36 Pulse 71 MON; Pulse Ox 96% ; jp6 04:41 BP 122 / 74 (auto/); jp6 04:41 Pulse 71 MON; Pulse Ox 96% ; jp6 04:46 BP 121 / 72 (auto/); jp6 04:46 Pulse 71 MON; Pulse Ox 96% ; jp6 04:51 BP 120 / 68 (auto/); jp6 04:51 Pulse 70 MON; Pulse Ox 96% ; jp6 04:56 BP 117 / 70 (auto/); jp6 04:56 Pulse 70 MON; Pulse Ox 96% ; jp6 05:01 BP 113 / 71 (auto/); jp6 05:01 Pulse 69 MON; Pulse Ox 96% ; jp6 05:06 BP 122 / 76 (auto/); jp6 05:06 Pulse 70 MON; Pulse Ox 96% ; jp6 05:11 BP 120 / 71 (auto/); jp6 05:11 Pulse 69 MON; Pulse Ox 96% ; jp6 05:27 BP 146 / 67; Pulse 66; Resp 16; Temp 96.7(TE); Pulse Ox 97% on ETT vent; 07/18 22:54 Body Mass Index 34.21 (102.06 kg, 172.72 cm) rs6 Procedures: 01:04 Intubation: Intubated via left nare with 7.0 Fr. ETT. was successful on first attempt. mm11 Ventilated with Ambu bag. Placement verified by CXR, CO2 detector w/ + color change, auscultating bilateral breath sounds, O2 saturation after procedure was 100 %. Direct Visualization of chorina. Patient tolerated well, Patient intubated via ambu-scope. MDM: 0202 23:30 -Blood Culture (Adults Only), peripheral from different site, or from device/port/PICC mm11 etc. if present ordered. 23:30 Lidocaine Liquid 4 % 5 ml Mucous Membrane once; ADMINISTER VIA NEBULIZER ordered. mm11 23:30 IV Saline Lock ordered. mm11 23:30 NS 0.9% 1000 ml IV at 100 mL/hr continuous ordered. mm11 23:30 Solu-MEDROL 125 mg IVP once ordered. mm11 23:30 diphenhydrAMINE 25 mg IVP once ordered. mm11 23:30 Famotidine 10 mg IVPB once over 30 mins; dilute in 50mL of NS ordered. mm11 23:31 CBC with Diff Ordered. EDMS 23:31 BMP Ordered. EDMS 23:31 ESR Ordered. EDMS 23:31 CRP Ordered. EDMS 23:31 -Blood Culture Ordered. EDMS 23:31 Type & Screen Ordered. EDMS 23:34 -Blood Culture (Adults Only), peripheral from different site, or from device/port/PICC mdr etc. if present complete. 23:34 BLOOD CULTURES Ordered. EDMS 02/03 00:03 Transfuse FFP 2 units, ensure FFP ordered in lab ordered. mm11 00:03 Chest, 1 View Ordered. EDMS 00:04 FFP Ordered. EDMS 00:05 BED REQUEST+ADM ordered. EDMS 00:05 Ketamine (1mg/kg - Peds initial dose) 100 mg IVP once ordered. mm11 00:10 Propofol (PF) 25 mcg/kg/min IVPB at calculated rate continuous; titrate to Bullock 2-3 mm11 ordered. 00:24 -Arterial Blood Gas Ordered. EDMS 00:59 VENTILATOR SETTINGS ordered. EDMS 00:59 PORTABLE CHEST X-RAY Ordered. EDMS 00:59 PORTABLE CHEST X-RAY Ordered. EDMS 00:59 PORTABLE CHEST X-RAY Ordered. EDMS 00:59 PORTABLE CHEST X-RAY Ordered. EDMS 00:59 PORTABLE CHEST X-RAY Ordered. EDMS 01:00 PORTABLE CHEST X-RAY Ordered. EDMS 01:00 PORTABLE CHEST X-RAY Ordered. EDMS 01:00 PORTABLE CHEST X-RAY Ordered. EDMS 01:01 Admission / Observation Status ordered. EDMS 01:01 NPO DIET ordered. EDMS 01:01 ARTERIAL BLOOD GAS Ordered. EDMS 01:01 CBC WITH DIFFERENTIAL Ordered. EDMS 01:02 COMPLETE COMPHRENSIVE METABOLI Ordered. EDMS 01:05 Ramirez ordered. jp6 01:15 Midazolam 2 mg IVP once ordered. sls1 01:17 VENTILATOR SETTINGS ordered. EDMS 01:17 Financial registration complete. [facility] 01:23 [facility] Payment Agreement was scanned into [employer] and attached to record. [facility] 01:59 Midazolam 2 mg IVP once ordered. sls1 02:04 CBC with Diff Reviewed. mm11 02:04 BMP Reviewed. mm11 02:04 -Arterial Blood Gas Reviewed. mm11 02:04 ESR Reviewed. mm11 02:04 CRP Reviewed. mm11 02:04 Type & Screen Reviewed. mm11 02:04 Chest, 1 View Reviewed. mm11 04:15 Propofol (PF) 40 mg IVP once ordered. jp6 04:16 Propofol (PF) 40 mg IVP once ordered. jp6 04:17 Midazolam 2 mg IVP once ordered. sls1 05:24 Digital Picture was scanned into [employer] and attached to record. mdr 05:43 MRSA SCREEN Ordered. EDMS 13:49 T-Sheet-- Draft Copy was scanned into [employer] and attached to record. gb 13:49 Consents was scanned into [employer] and attached to record. 02/ 04:10 CLEAR LIQUIDS DIET ordered. EDMS 04:10 REGULAR DIET ordered. EDMS Administered Medications: 07/18 00:41 Drug: Solu-MEDROL 125 mg [Solu-Medrol 500 mg intravenous solution (125 mg)] Route: IVP; kas2 Site: left antecubital; 00:42 Drug: diphenhydrAMINE 25 mg [diphenhydramine 50 mg/mL injection solution (0.5 mL)] kas2 Route: IVP; Site: left antecubital; 23:44 Drug: Lidocaine 5 ml [lidocaine 4 % (40 mg/mL) mucosal solution (5 mL)] Route: Mucous jc3 Membrane; 23:45 Drug: NS 0.9% 1000 ml [sodium chloride 0.9 % intravenous solution] Route: IV; Rate: 100 jp6 mL/hr; Site: left antecubital; 23:50 Drug: Famotidine 10 mg [famotidine 10 mg/mL intravenous solution] Route: IVPB; Infused kas2 Over: 30 mins; Site: left antecubital; 07/19 00:08 Drug: Propofol (PF) 2551.5 mcg/min [propofol (PF) 1,000 mg/100 mL (10 mg/mL) jp6 intravenous emulsion] Route: IVPB; Rate: calculated rate; Site: left antecubital; 00:08 Drug: Propofol (PF) 40 mg [propofol (PF) 1,000 mg/100 mL (10 mg/mL) intravenous jp6 emulsion (4 mL)] Route: IVP; Site: left antecubital; 00:09 Drug: Ketamine (1mg/kg - Peds initial dose) 100 mg [ketamine 10 mg/mL injection jp6 solution (10 mL)] Route: IVP; Site: left antecubital; 01:15 Drug: Midazolam 2 mg [midazolam 1 mg/mL injection solution (2 mL)] Route: IVP; Site: [facility] right hand; 01:59 Drug: Midazolam 2 mg [midazolam 1 mg/mL injection solution (2 mL)] Route: IVP; Site: [facility] left hand; 04:15 Drug: Propofol (PF) 40 mg [propofol (PF) 1,000 mg/100 mL (10 mg/mL) intravenous jp6 emulsion (4 mL)] {Note: given by Dr. Valdez.} Route: IVP; Site: left antecubital; 04:17 Drug: Midazolam 2 mg [midazolam 1 mg/mL injection solution (2 mL)] Route: IVP; Site: [facility] left hand; Signatures: Dispatcher [employer] EDAK Lor Martinez, Reg Reg Rosaline Cobb,RN RN scott3 Drew Valdez, DO mm11 Suha Colby RN RN sls1 Kylie Morris Mitchell, SEWER SEWER Anita Tee RN RN jp6 Vicente Hopkins RN RN sa Colello, Joseph jc3 Leyla Guerra RN kas2 The chart was reviewed and I authenticate all verbal orders and agree with the evaluation and treatment provided.Corrections: (The following items were deleted from the chart) 00:14 00:03 Chest, 1 view ordered. EDMS EDMS Attachments: 01:23 [facility] Payment Agreement [facility] 13:49 T-Sheet-- Draft Copy gb Chart Complete MTDD
[2016-07-21 06:46] VITALS: BP 126/74
--- NOTE | 2016-07-21 06:46 | EDDOCDS ---
Nurse's Notes [facility] Name: Brent Harris Age: 65 yrs Sex: Male : 1950 Arrival Date: 07/18/2016 Time: 22:53 Bed 2 Private MD: Eduard Diagnosis: Shortness of breath-AIRWAY ANGIOEDEMA, ACEI INDUCED. Presentation: 07/18 23:09 Presenting complaint: Patient states: While riding his bike home at 2030, pt felt like jo3 his throat was tingling. Over the course of the next 2 hours, pt felt like his airway was narrowing and he was struggling to get in an breath. Adult Sepsis Screening: The patient does not have new or worsening altered mentation. Patient's respiratory rate is less than 22. Systolic blood pressure is greater than 100. Patient has a qSOFA score of 0- Negative Sepsis Screen. Suicide/Homicide risk assessment- the patient denies having any suicidal and/or homicidal ideations and does not present with any other emotional, behavioral or mental health complaints. Status: Patient is not a surgical services coordinator or dependent. Transition of care: patient was not received from another setting of care. 23:09 Acuity: TRINO Level 2 jo3 23:09 Method Of Arrival: Walkin/Carried/Asstd jo3 Triage Assessment: 23:11 General: Appears in no apparent distress, comfortable, Behavior is appropriate for age, jo3 cooperative. HIV screening NA for this visit Offered previously. Neurological: Level of Consciousness is awake, alert, Oriented to person, place, time. Respiratory: Airway is patent Respiratory effort is even, unlabored. Derm: Skin is pink, warm & dry. 07/19 05:32 Respiratory: Onset: The symptoms/episode began/occurred gradually. jp6 Historical: - Allergies: No known drug Allergies; - Home Meds: 1. lisinopril 2.5 mg Oral tab 1 tab once daily 2. Crestor 20 mg Oral tab 1 tab once daily 3. atenolol 25 mg Oral tab 1 tab once daily 4. Plavix 75 mg Oral tab 1 tab once daily 5. aspirin 81 mg Oral tab 1 tab once daily 6. zolpidem 10 mg Oral tab 1 tab once daily 7. Tylenol 325 mg Oral tab 2 tabs every 6 hours 8. gabapentin 300 mg Oral tab twice a day 9. Fish Oil 1200 Oral daily 10. vitamin B complex oral cap daily 11. timolol maleate 0.5 % Opht drpd 1 drop once daily - PMHx: [place]; HTN; - PSHx: Knee surgery; back surgery; thumb surgery; foot surgery; Adenoidectomy; Tonsillectomy; TYSON carpal tunnel; knee replacements TYSON; cardiac stents x2; - Social history: Smoking status: Patient states former smoker of tobacco. No barriers to communication noted, The patient speaks fluent Chinese, Speaks appropriately for age. - Family history: Not pertinent. - : The pt / caregiver states he / she is not on anticoagulants. Home medication list is obtained from the patient, family members. - Exposure Risk Screening:: None identified. Screenin:31 Screening information is obtained from the patient. Fall risk: No risks identified. jp6 Assistance ADL's: requires no assistance with activities of daily living. Abuse/DV Screen: The patient / caregiver reports he/she is: not in a situation that causes fear, pain or injury. Nutritional screening: No deficits noted. Advance Directives: Currently, there is a health care proxy, Maribel Harris . There is no active DNR order. There is no living will. home support is adequate. Assessment: 07/18 23:50 General: Appears in no apparent distress, uncomfortable, well nourished, well groomed, kas2 Behavior is appropriate for age, cooperative. General: Patient complaining of a difficulty in breathing. States that he feels his throat is closing. Hoarse voice. States his throat feel scratchy. Denies chest pain. No drooling. Able to swallow own saliva. No tongue or lip swelling noted. . Pain: Location: throat Pain currently is 5 out of 10 on a pain scale. Neurological: Level of Consciousness is awake, alert, Oriented to person, place, time. Cardiovascular: Capillary refill < 3 seconds Heart tones S1 S2 present Rhythm is sinus rhythm No ectopy. Chest pain is denied. Respiratory: Airway is patent Respiratory effort is even, unlabored, Respiratory pattern is regular, symmetrical, Breath sounds are clear bilaterally. Derm: Skin is intact, Skin is dry, Skin is pink, warm & dry. Skin temperature is warm. Musculoskeletal: No deficits noted. Injury Description: No known injury. 23:55 Reassessment: Pt moved to - used ambuscope pt tolerated well.Plan to [facility] intubate for swelling.. 03 00:00 Reassessment: Patient appears in no apparent distress at this time. General: Appears in [facility] no apparent distress, comfortable. Neurological: Level of Consciousness is unresponsive. Cardiovascular: Capillary refill < 3 seconds Heart tones S1 S2 present Rhythm is sinus rhythm No ectopy. Respiratory: Airway via nasal intubation Respiratory effort is even, Respiratory pattern is symmetrical, Breath sounds are clear bilaterally. GI: No deficits noted. : No deficits noted. Derm: Skin is pink, warm & dry. Musculoskeletal: No deficits noted. 00:31 Reassessment: Patient appears in no apparent distress at this time. Respiratory: Airway [facility] via nasal intubation Respiratory effort is even, Respiratory pattern is symmetrical. 01:02 Reassessment: Patient appears in no apparent distress at this time. General: Appears in [facility] no apparent distress, comfortable. Pain: Unable to use pain scale. Neurological: Level of Consciousness is unresponsive, Oriented to. EENT: Nares with bleeding noted on left left nare. Cardiovascular: Rhythm is sinus rhythm No ectopy. Respiratory: Airway is patent via nasal intubation Respiratory effort is even, unlabored, Respiratory pattern is regular, symmetrical, Breath sounds are clear bilaterally. Derm: Skin is pink, warm & dry. 01:38 Reassessment: Patient appears in no apparent distress at this time. General: Appears in [facility] no apparent distress, Behavior is restless. Pain: Unable to use pain scale. Patient is intubated. Neurological: Level of Consciousness is unresponsive. EENT:. Cardiovascular: Rhythm is sinus rhythm No ectopy. Respiratory: Airway is patent via nasal intubation Respiratory effort is even, unlabored, Respiratory pattern is regular, symmetrical, Breath sounds are clear bilaterally. Derm: Skin is pink, warm & dry. 02:00 Reassessment: Patient appears in no apparent distress at this time. General: Appears in [facility] no apparent distress, comfortable. Neurological: Level of Consciousness is unresponsive. Cardiovascular: Rhythm is sinus rhythm No ectopy. Respiratory: Airway is patent Respiratory effort is even, unlabored, Respiratory pattern is regular, symmetrical, Breath sounds are clear bilaterally. Derm: Skin is pink, warm & dry. 02:30 Reassessment: Patient appears in no apparent distress at this time. remains at [facility] bedside. Pt is tolerating the ventilator.Appears comfortable-does move his toes. FFP infusing as ordered.. 02:40 Reassessment: FFP finished.. jp6 03:02 Reassessment: Patient appears in no apparent distress at this time. General: Appears in jp6 no apparent distress, comfortable. Pain: Unable to use pain scale. Patient is intubated. Pain: Unable to use pain scale. Patient is unresponsive. Neurological: Level of Consciousness is unresponsive. Cardiovascular: Rhythm is sinus rhythm No ectopy. Respiratory: Airway is patent Respiratory effort is even, unlabored, Respiratory pattern is regular, symmetrical, Breath sounds are clear. GI: No deficits noted. : No deficits noted. Derm: Skin is pink, warm & dry. 03:29 Reassessment: Patient appears in no apparent distress at this time. General: Appears in jp6 no apparent distress. Pain: Unable to use pain scale. Patient is intubated. Patient is unresponsive. Neurological: Level of Consciousness is unresponsive. Cardiovascular: Capillary refill < 3 seconds Heart tones S1 S2 present Rhythm is sinus rhythm No ectopy. Respiratory: Airway is patent Respiratory effort is even, unlabored, Respiratory pattern is regular, symmetrical. Derm: Skin is pink, warm & dry. 03:57 Reassessment: Patient appears in no apparent distress at this time. General: Appears in jp6 no apparent distress, comfortable. Neurological: Level of Consciousness is unresponsive. Cardiovascular: Rhythm is sinus rhythm No ectopy. Respiratory: Breath sounds are clear bilaterally. Derm: Skin is pink, warm & dry. 04:17 Reassessment: propofol being changed to new bottle-pt became very restless and went to [facility] pull out endotracheal tube- stopped him, at bedside and ordered another bolus of propofol which did help settle pt. remains atr bedside. Lungs are clear. O2 sat-98%.. 04:44 Reassessment: Patient appears in no apparent distress at this time. General: Appears in jp6 no apparent distress, comfortable. Pain: Unable to use pain scale. Patient is unresponsive. Neurological: Level of Consciousness is unresponsive. Cardiovascular: Capillary refill < 3 seconds Rhythm is sinus rhythm No ectopy. Respiratory: Airway is patent Respiratory effort is even, unlabored, Respiratory pattern is regular, symmetrical, Breath sounds are clear bilaterally. Derm: Skin is pink, warm & dry. 05:13 Reassessment: Patient appears in no apparent distress at this time. General: Appears in jp6 no apparent distress, comfortable. Pain: Unable to use pain scale. Patient is intubated. Patient is unresponsive. Neurological: Level of Consciousness is unresponsive. EENT:. Cardiovascular: Capillary refill < 3 seconds Rhythm is sinus rhythm No ectopy. Respiratory: Airway is patent Respiratory effort is even, Breath sounds are clear bilaterally. Derm: Skin is pink, warm & dry. Vital Signs: 07/18 22:54 BP 154 / 86 RA Sitting (auto/lg); Pulse 57; Resp 18; Temp 97.3(O); Pulse Ox 96% on R/A; rs6 Weight 102.06 kg (R); Height 5 ft. 8 in. (172.72 cm) (R); 23:35 Pulse 65 MON; Pulse Ox 98% ; jp6 23:36 Pulse 62 MON; Pulse Ox 98% ; jp6 23:54 BP 199 / 92 (auto/); jp6 23:54 Pulse 67 MON; Pulse Ox 97% ; jp6 23:59 BP 225 / 112 (auto/); jp6 23:59 Pulse 108 MON; Pulse Ox 95% ; jp6 07/19 00:08 BP 167 / 115 (auto/); jp6 00:08 Pulse 96 MON; Pulse Ox 98% ; jp6 00:13 BP 154 / 77 (auto/); jp6 00:13 Pulse 94 MON; Pulse Ox 85% ; jp6 00:16 BP 128 / 63 (auto/); jp6 00:16 Pulse 79 MON; Pulse Ox 99% ; jp6 00:21 BP 111 / 69 (auto/); jp6 00:21 Pulse 78 MON; Pulse Ox 99% ; jp6 00:26 BP 99 / 73 (auto/); jp6 00:26 Pulse 77 MON; Pulse Ox 97% ; jp6 00:31 BP 115 / 61 (auto/); jp6 00:31 Pulse 74 MON; Pulse Ox 97% ; jp6 00:36 BP 116 / 76 (auto/); jp6 00:36 Pulse 79 MON; Pulse Ox 96% ; jp6 00:41 BP 114 / 57 (auto/); jp6 00:41 Pulse 69 MON; Pulse Ox 97% ; jp6 00:46 BP 125 / 68 (auto/); jp6 00:46 Pulse 75 MON; Pulse Ox 95% ; jp6 00:51 BP 131 / 73 (auto/); jp6 00:51 Pulse 65 MON; Pulse Ox 94% ; jp6 00:56 BP 134 / 97 (auto/); jp6 00:56 Pulse 65 MON; Pulse Ox 98% ; jp6 01:01 BP 134 / 75 (auto/); jp6 01:01 Pulse 66 MON; Pulse Ox 97% ; jp6 01:06 BP 123 / 59 (auto/); jp6 01:06 Pulse 64 MON; Pulse Ox 97% ; jp6 01:11 BP 142 / 69 (auto/); jp6 01:11 Pulse 62 MON; Pulse Ox 96% ; jp6 01:16 BP 136 / 59 (auto/); jp6 01:16 Pulse 66 MON; Pulse Ox 96% ; jp6 01:16 Resp 16; Temp 96.6(TE); jp6 01:21 BP 111 / 58 (auto/); jp6 01:21 Pulse 67 MON; Pulse Ox 96% ; jp6 01:26 BP 108 / 59 (auto/); jp6 01:26 Pulse 64 MON; Pulse Ox 96% ; jp6 01:31 BP 105 / 55 (auto/); jp6 01:31 Pulse 65 MON; Pulse Ox 96% ; jp6 01:36 BP 121 / 57 (auto/); jp6 01:36 Pulse 64 MON; Pulse Ox 96% ; jp6 01:41 BP 119 / 59 (auto/); jp6 01:41 Pulse 63 MON; Pulse Ox 96% ; jp6 01:46 BP 114 / 68 (auto/); jp6 01:46 Pulse 65 MON; Pulse Ox 96% ; jp6 01:51 BP 129 / 76 (auto/); jp6 01:51 Pulse 65 MON; Pulse Ox 96% ; jp6 01:56 BP 150 / 79 (auto/); jp6 01:56 Pulse 65 MON; Pulse Ox 96% ; jp6 02:01 BP 125 / 60 (auto/); jp6 02:01 Pulse 67 MON; Pulse Ox 97% ; jp6 02:06 BP 131 / 60 (auto/); jp6 02:06 Pulse 67 MON; Pulse Ox 97% ; jp6 02:11 BP 117 / 62 (auto/); jp6 02:11 Pulse 68 MON; Pulse Ox 97% ; jp6 02:15 Pulse 67 MON; Pulse Ox 97% ; jp6 02:16 BP 121 / 58 (auto/); jp6 02:16 Pulse 68 MON; Pulse Ox 97% ; jp6 02:21 BP 122 / 57 (auto/); jp6 02:21 Pulse 68 MON; Pulse Ox 97% ; jp6 02:26 BP 127 / 61 (auto/); jp6 02:26 Pulse 68 MON; Pulse Ox 97% ; jp6 02:31 BP 125 / 62 (auto/); jp6 02:31 Pulse 66 MON; Pulse Ox 97% ; jp6 02:36 BP 129 / 67 (auto/); jp6 02:36 Pulse 67 MON; Pulse Ox 97% ; jp6 02:40 Temp 96.3; jp6 02:41 BP 137 / 66 (auto/); jp6 02:41 Pulse 67 MON; Pulse Ox 98% ; jp6 02:46 BP 140 / 62 (auto/); jp6 02:46 Pulse 67 MON; Pulse Ox 98% ; jp6 02:51 BP 151 / 78 (auto/); jp6 02:51 Pulse 67 MON; Pulse Ox 100% ; jp6 02:56 BP 152 / 75 (auto/); jp6 02:56 Pulse 64 MON; Pulse Ox 100% ; jp6 03:01 BP 141 / 66 (auto/); jp6 03:01 Pulse 65 MON; Pulse Ox 99% ; jp6 03:06 BP 150 / 71 (auto/); jp6 03:06 Pulse 65 MON; Pulse Ox 97% ; jp6 03:11 BP 134 / 73 (auto/); jp6 03:11 Pulse 67 MON; Pulse Ox 96% ; jp6 03:16 BP 129 / 73 (auto/); jp6 03:16 Pulse 66 MON; Pulse Ox 94% ; jp6 03:20 Pulse 67 MON; Pulse Ox 95% ; jp6 03:21 BP 128 / 77 (auto/); jp6 03:21 Pulse 66 MON; Pulse Ox 95% ; jp6 03:26 BP 128 / 78 (auto/); jp6 03:26 Pulse 67 MON; Pulse Ox 94% ; jp6 03:31 Pulse 66 MON; Pulse Ox 94% ; jp6 03:31 BP 125 / 73 (auto/); jp6 03:32 Pulse 66 MON; Pulse Ox 94% ; jp6 03:36 BP 130 / 70 (auto/); jp6 03:36 Pulse 66 MON; Pulse Ox 93% ; jp6 03:41 BP 124 / 72 (auto/); jp6 03:41 Pulse 68 MON; Pulse Ox 97% ; jp6 03:46 BP 126 / 76 (auto/); jp6 03:46 Pulse 67 MON; Pulse Ox 97% ; jp6 03:51 BP 124 / 78 (auto/); jp6 03:51 Pulse 68 MON; Pulse Ox 97% ; jp6 03:56 BP 126 / 78 (auto/); jp6 03:56 Pulse 67 MON; Pulse Ox 97% ; jp6 03:56 Resp 16; Temp 96.6(TE); jp6 04:01 BP 140 / 74 (auto/); jp6 04:01 Pulse 66 MON; Pulse Ox 98% ; jp6 04:06 BP 149 / 77 (auto/); jp6 04:06 Pulse 67 MON; Pulse Ox 99% ; jp6 04:11 BP 160 / 81 (auto/); jp6 04:12 Pulse 69 MON; Pulse Ox 98% ; jp6 04:13 Pulse 72 MON; Pulse Ox 97% ; jp6 04:16 BP 134 / 78 (auto/); jp6 04:16 Pulse 75 MON; Pulse Ox 97% ; jp6 04:21 Pulse 74 MON; Pulse Ox 97% ; jp6 04:21 BP 130 / 77 (auto/); jp6 04:26 BP 121 / 75 (auto/); jp6 04:26 Pulse 75 MON; Pulse Ox 96% ; jp6 04:31 BP 124 / 76 (auto/); jp6 04:31 Pulse 73 MON; Pulse Ox 96% ; jp6 04:36 BP 119 / 74 (auto/); jp6 04:36 Pulse 71 MON; Pulse Ox 96% ; jp6 04:41 BP 122 / 74 (auto/); jp6 04:41 Pulse 71 MON; Pulse Ox 96% ; jp6 04:46 BP 121 / 72 (auto/); jp6 04:46 Pulse 71 MON; Pulse Ox 96% ; jp6 04:51 BP 120 / 68 (auto/); jp6 04:51 Pulse 70 MON; Pulse Ox 96% ; jp6 04:56 BP 117 / 70 (auto/); jp6 04:56 Pulse 70 MON; Pulse Ox 96% ; jp6 05:01 BP 113 / 71 (auto/); jp6 05:01 Pulse 69 MON; Pulse Ox 96% ; jp6 05:06 BP 122 / 76 (auto/); jp6 05:06 Pulse 70 MON; Pulse Ox 96% ; jp6 05:11 BP 120 / 71 (auto/); jp6 05:11 Pulse 69 MON; Pulse Ox 96% ; jp6 05:27 BP 146 / 67; Pulse 66; Resp 16; Temp 96.7(TE); Pulse Ox 97% on ETT vent; jp6 07/18 22:54 Body Mass Index 34.21 (102.06 kg, 172.72 cm) rs6 Vitals: 07/18 22:54 Log In Time: July 18, 2016 at 22:54. RN notified that patient meets Red Flag rs6 criteria. ED Course: 22:54 Patient visited by Shamika Barros PCA. rs6 22:54 Eduard is Private Physician. rs6 22:54 Patient moved to Waiting rs6 23:06 Savita Tovar,RN is Primary Nurse. sls1 23:06 Patient moved to 11 sls1 23:10 Triage Initiated jo3 23:17 Drew Valdez DO is Attending Physician. mm11 23:17 Patient visited by Drew Valdez DO. mm11 23:18 Patient visited by Suha Colby, GRAYSON. sls1 23:27 Leyla Guerra,RN is Primary Nurse. sls1 23:27 Patient moved to 2 sls1 23:28 Patient visited by Drew Valdez DO. mm11 23:55 ambuscope. Set up for procedure. Performed by Drew Valdez DO Monitored with cardiac jp6 monitor, pulse ox, Patient tolerated well. 23:59 Assist provider with intubation with 7.0 Fr. ETT. via left nare. Set up intubation jp6 tray. Intubated by Drew Valdez DO Placement verified by CXR, CO2 detector w/ + color change, auscultating bilateral breath sounds, Patient tolerated well. 23:59 Labs/Blood culture drawn. Assist ventilation with ventilator. jp6 07/19 00:13 Patient visited by Leyla Guerra,GRAYSON. kas2 00:16 The patient / caregiver is instructed regarding the plan of care and ED course. Cardiac jp6 monitor on. Pulse ox on. NIBP on. 00:16 Inserted saline lock: 18 gauge in left hand antecubital area and blood collected. jp6 00:22 Yan Muller is Hospitalizing Provider. mm11 00:35 Chest, 1 View Returned. EDMS 01:05 Ramirez cath inserted 16 Fr. Balloon inflated. To gravity drainage. returned clear yellow jp6 urine. Patient tolerated well. 01:23 [facility] Payment Agreement was scanned into [employer] and attached to record. [facility] 01:31 Blood products: FFP X 2 units given. jp6 02:30 Primary Nurse role handed off by Savita Tovar,RN sls1 05:13 Primary Nurse role handed off by Leyla Guerra,GRAYSON jp6 05:13 Anita Walker,GRAYSON is Primary Nurse. jp6 05:24 Digital Picture was scanned into [employer] and attached to record. mdr 13:49 T-Sheet-- Draft Copy was scanned into [employer] and attached to record. gb 13:49 Consents was scanned into [employer] and attached to record. gb 02 04:15 PORTABLE CHEST X-RAY Returned. EDMS Administered Medications: 07/18 00:41 Drug: Solu-MEDROL 125 mg [Solu-Medrol 500 mg intravenous solution (125 mg)] Route: IVP; kas2 Site: left antecubital; 00:42 Drug: diphenhydrAMINE 25 mg [diphenhydramine 50 mg/mL injection solution (0.5 mL)] kas2 Route: IVP; Site: left antecubital; 23:44 Drug: Lidocaine 5 ml [lidocaine 4 % (40 mg/mL) mucosal solution (5 mL)] Route: Mucous jc3 Membrane; 23:45 Drug: NS 0.9% 1000 ml [sodium chloride 0.9 % intravenous solution] Route: IV; Rate: 100 jp6 mL/hr; Site: left antecubital; 23:50 Drug: Famotidine 10 mg [famotidine 10 mg/mL intravenous solution] Route: IVPB; Infused kas2 Over: 30 mins; Site: left antecubital; 07/19 00:08 Drug: Propofol (PF) 2551.5 mcg/min [propofol (PF) 1,000 mg/100 mL (10 mg/mL) jp6 intravenous emulsion] Route: IVPB; Rate: calculated rate; Site: left antecubital; 00:08 Drug: Propofol (PF) 40 mg [propofol (PF) 1,000 mg/100 mL (10 mg/mL) intravenous jp6 emulsion (4 mL)] Route: IVP; Site: left antecubital; 00:09 Drug: Ketamine (1mg/kg - Peds initial dose) 100 mg [ketamine 10 mg/mL injection jp6 solution (10 mL)] Route: IVP; Site: left antecubital; 01:15 Drug: Midazolam 2 mg [midazolam 1 mg/mL injection solution (2 mL)] Route: IVP; Site: sls1 right hand; 01:59 Drug: Midazolam 2 mg [midazolam 1 mg/mL injection solution (2 mL)] Route: IVP; Site: sls1 left hand; 04:15 Drug: Propofol (PF) 40 mg [propofol (PF) 1,000 mg/100 mL (10 mg/mL) intravenous jp6 emulsion (4 mL)] {Note: given by Dr. Valdez.} Route: IVP; Site: left antecubital; 04:17 Drug: Midazolam 2 mg [midazolam 1 mg/mL injection solution (2 mL)] Route: IVP; Site: sls1 left hand; Attachments: 13:49 Consents gb Intake: 01:16 PO: 0.00ml; IV: 1050.00ml (NS); Total: 1050.00ml. jp6 03:56 IV: 381.00ml (FFP); Total: 1431.00ml. jp6 05:27 PO: 0.00ml; IV: 180.00ml (NS); Total: 1611.00ml. jp6 Output: 05:27 Urine: 400.00ml (Ramirez); Total: 400.00ml. jp6 RT: 07/18 23:44 Initial Med Neb Given as ordered. jc3 07/19 00:50 ABG's drawn from right radial artery pressure held for 5 minutes no bleeding noted jc3 pressure bandage applied specimen sent pt. tolerated well. Ventilation: Ventilator Settings PRVC, FiO2 40% Resp Rate: 14, Tidal Volume 480ml PEEP: 5. Respiratory: Airway is compromised via nasal intubation Respiratory effort is labored, Breath sounds are diminished bilaterally. 00:52 Intubation: Performed by Dr. Valdez. placed in left nare. 7.0 Fr. ETT Successful on jc3 first attempt. Placement verified by CXR, CO2 detector w/ + color change, auscultating bilateral breath sounds, Ventilated with Ambu bag. ventilator. Order Results: Lab Order: CBC with Diff; SPEC'M 07/18/16 23:42 Test: WHITE BLOOD COUNT; Value: 7.7; Range: 4.0-10.0; Units: K/mm3; Status: F Test: RED BLOOD COUNT; Value: 4.50; Range: 4.30-6.10; Units: M/mm3; Status: F Test: HEMOGLOBIN; Value: 14.4; Range: 14.0-18.0; Units: g/dl; Status: F Test: HEMATOCRIT; Value: 43.1; Range: 42.0-52.0; Units: %; Status: F Test: MEAN CORPUSCULAR VOLUME; Value: 95.9; Range: 80.0-96.0; Units: fl; Status: F Test: MEAN CORPUSCULAR HEMOGLOBIN; Value: 32.1; Range: 27.0-33.0; Units: pg; Status: F Test: MEAN CORPUSCULAR HGB CONC; Value: 33.5; Range: 32.0-36.5; Units: g/dl; Status: F Test: RED CELL DISTRIBUTION WIDTH; Value: 12.7; Range: 11.5-14.5; Units: %; Status: F Test: PLATELET COUNT, AUTOMATED; Value: 162; Range: 150-450; Units: k/mm3; Status: F Test: NEUTROPHILS %; Value: 69.2; Range: 36.0-66.0; Abnormal: Above high normal; Units: %; Status: F Test: LYMPH %; Value: 20.0; Range: 24.0-44.0; Abnormal: Below low normal; Units: %; Status: F Test: MONO %; Value: 6.1; Range: 0.0-5.0; Abnormal: Above high normal; Units: %; Status: F Test: EOS %; Value: 2.6; Range: 0.0-3.0; Units: %; Status: F Test: BASO %; Value: 0.1; Range: 0.0-1.0; Units: %; Status: F Test: LARGE UNSTAINED CELL %; Value: 1.9; Range: 0.0-4.0; Units: %; Status: F Test: NEUTROPHILS #; Value: 5.3; Range: 1.8-7.7; Units: K/mm3; Status: F Test: LYMPH #; Value: 1.5; Range: 1.5-4.5; Units: K/mm3; Status: F Test: MONO #; Value: 0.5; Range: 0.0-0.8; Units: K/mm3; Status: F Test: EOS #; Value: 0.2; Range: 0.0-0.50; Units: K/mm3; Status: F Test: BASO #; Value: 0.0; Range: 0.0-0.2; Units: K/mm3; Status: F Test: LARGE UNSTAINED CELL #; Value: 0.2; Range: 0.0-0.4; Units: K/mm3; Status: F Lab Order: [facility]; SPEC'M 07/18/16 23:42 Test: GLUCOSE, FASTING; Value: 109; Range: 80-110; Units: MG/DL; Status: F Test: BLOOD UREA NITROGEN; Value: 31; Range: 7-18; Abnormal: Above high normal; Units: MG/DL; Status: F Test: CREATININE FOR GFR; Value: 0.94; Range: 0.70-1.30; Units: MG/DL; Status: F Test: GLOMERULAR FILTRATION RATE; Value: > 60.0; Range: >49; Status: F Test: SODIUM LEVEL; Value: 142; Range: 136-145; Units: MEQ/L; Status: F Test: POTASSIUM SERUM; Value: 4.0; Range: 3.5-5.1; Units: MEQ/L; Status: F Test: CHLORIDE LEVEL; Value: 107; Range: 98-107; Units: MEQ/L; Status: F Test: CARBON DIOXIDE LEVEL; Value: 29; Range: 21-32; Units: MEQ/L; Status: F Test: ANION GAP; Value: 6; Range: 8-16; Abnormal: Below low normal; Units: MEQ/L; Status: F Test: CALCIUM LEVEL; Value: 8.4; Range: 8.8-10.2; Abnormal: Below low normal; Units: MG/DL; Status: F Test Note: ; Units are mL/min/1.73 m2 Chronic Kidney Disease Staging per NKF: Stage I & II GFR >=60 Normal to Mildly Decreased Stage III GFR 30-59 Moderately Decreased Stage IV GFR 15-29 Severely Decreased Stage V GFR <15 Very Little GFR Left ESRD GFR <15 on LAMIN[employer]ARDS Lab Order: ESR; [facility] 07/18/16:42 Test: ERYTHROCYTE SEDIMENTATION RATE; Value: 6; Range: 0-20; Units: mm/hr; Status: F Lab Order: CRP; [facility] 07/18/16:42 Test: C REACTIVE PROTEIN QUANTITATIV; Value: < 0.30; Range: 0.00-0.30; Units: MG/DL; Status: F Lab Order: -Blood Culture; [facility] 07/18/16 Test: BLOOD CULTURE; Value: No growth after 24 hours . All specimens observed; Status: F Test: BLOOD CULTURE; Value: for 5 days. Results final at that time.; Status: F Test: BLOOD CULTURE; Value: No Growth after 48 hours. All Specimens observed; Status: F Test: BLOOD CULTURE; Value: for 7 days. Results final at that time.; Status: F Lab Order: Type & Screen; 07/18/1642 Test: BLOOD TYPE; Value: O POS; Status: F Test: AB SCREEN (INDIRECT KAYLA)GEL; Value: NEGATIVE; Status: F Lab Order: BLOOD CULTURES; [facility] 07/18/16:42 Test: BLOOD CULTURE; Value: No growth after 24 hours . All specimens observed; Status: F Test: BLOOD CULTURE; Value: for 5 days. Results final at that time.; Status: F Test: BLOOD CULTURE; Value: No Growth after 48 hours. All Specimens observed; Status: F Test: BLOOD CULTURE; Value: for 7 days. Results final at that time.; Status: F Lab Order: -Arterial Blood Gas; [facility] 07/19/16 00:33 Test: ABG pH (ARTERIAL); Value: 7.320; Range: 7.350-7.450; Abnormal: Below low normal; Units: UNITS; Status: F Test: ABG PARTIAL PRESSURE CO2; Value: 45.5; Range: 35.0-45.0; Abnormal: Above high normal; Units: mmHg; Status: F Test: ABG PARTIAL PRESSURE O2; Value: 96.4; Range: 75.0-100.0; Units: mmHg; Status: F Test: ABG TOTAL CO2; Value: 24.3; Range: 23.0-31.0; Units: MEQ/L; Status: F Test: ABG HCO3; Value: 22.9; Range: 22.0-26.0; Units: MEQ/L; Status: F Test: ABG BASE EXCESS; Value: -3.3; Range: -2.0-2.0; Abnormal: Below low normal; Status: F Test: ABG STANDARD HCO3; Value: 21.7; Range: 22.0-26.0; Abnormal: Below low normal; Units: MEQ/L; Status: F Test: ABG O2 SATURATION; Value: 97.1; Range: 95.0-99.0; Units: %; Status: F Test: ABG DEVICE; Value: NASAL AMY; Status: F Lab Order: ARTERIAL BLOOD GAS; SPEC'M 07/19/16 05:26 Test: ABG pH (ARTERIAL); Value: 7.387; Range: 7.350-7.450; Units: UNITS; Status: F Test: ABG PARTIAL PRESSURE CO2; Value: 39.8; Range: 35.0-45.0; Units: mmHg; Status: F Test: ABG PARTIAL PRESSURE O2; Value: 89.4; Range: 75.0-100.0; Units: mmHg; Status: F Test: ABG TOTAL CO2; Value: 24.6; Range: 23.0-31.0; Units: MEQ/L; Status: F Test: ABG HCO3; Value: 23.4; Range: 22.0-26.0; Units: MEQ/L; Status: F Test: ABG BASE EXCESS; Value: -1.4; Range: -2.0-2.0; Status: F Test: ABG STANDARD HCO3; Value: 23.3; Range: 22.0-26.0; Units: MEQ/L; Status: F Test: ABG O2 SATURATION; Value: 97.3; Range: 95.0-99.0; Units: %; Status: F Lab Order: CBC WITH DIFFERENTIAL; SPEC'07/19/16 05:59 Test: WHITE BLOOD COUNT; Value: 7.4; Range: 4.0-10.0; Units: K/mm3; Status: F Test: RED BLOOD COUNT; Value: 4.30; Range: 4.30-6.10; Units: M/mm3; Status: F Test: HEMOGLOBIN; Value: 13.7; Range: 14.0-18.0; Abnormal: Below low normal; Units: g/dl; Status: F Test: HEMATOCRIT; Value: 41.6; Range: 42.0-52.0; Abnormal: Below low normal; Units: %; Status: F Test: MEAN CORPUSCULAR VOLUME; Value: 96.7; Range: 80.0-96.0; Abnormal: Above high normal; Units: fl; Status: F Test: MEAN CORPUSCULAR HEMOGLOBIN; Value: 32.0; Range: 27.0-33.0; Units: pg; Status: F Test: MEAN CORPUSCULAR HGB CONC; Value: 33.1; Range: 32.0-36.5; Units: g/dl; Status: F Test: RED CELL DISTRIBUTION WIDTH; Value: 12.9; Range: 11.5-14.5; Units: %; Status: F Test: PLATELET COUNT, AUTOMATED; Value: 163; Range: 150-450; Units: k/mm3; Status: F Test: NEUTROPHILS %; Value: 88.3; Range: 36.0-66.0; Abnormal: Above high normal; Units: %; Status: F Test: LYMPH %; Value: 8.6; Range: 24.0-44.0; Abnormal: Below low normal; Units: %; Status: F Test: MONO %; Value: 1.9; Range: 0.0-5.0; Units: %; Status: F Test: EOS %; Value: 0.2; Range: 0.0-3.0; Units: %; Status: F Test: BASO %; Value: 0.2; Range: 0.0-1.0; Units: %; Status: F Test: LARGE UNSTAINED CELL %; Value: 0.8; Range: 0.0-4.0; Units: %; Status: F Test: NEUTROPHILS #; Value: 6.5; Range: 1.8-7.7; Units: K/mm3; Status: F Test: LYMPH #; Value: 0.6; Range: 1.5-4.5; Abnormal: Below low normal; Units: K/mm3; Status: F Test: MONO #; Value: 0.1; Range: 0.0-0.8; Units: K/mm3; Status: F Test: EOS #; Value: 0.0; Range: 0.0-0.50; Units: K/mm3; Status: F Test: BASO #; Value: 0.0; Range: 0.0-0.2; Units: K/mm3; Status: F Test: LARGE UNSTAINED CELL #; Value: 0.1; Range: 0.0-0.4; Units: K/mm3; Status: F Lab Order: COMPLETE COMPHRENSIVE METABOLI; SPEC'M 07/19/16 05:58 Test: GLUCOSE, FASTING; Value: 166; Range: 80-110; Abnormal: Above high normal; Units: MG/DL; Status: F Test: BLOOD UREA NITROGEN; Value: 28; Range: 7-18; Abnormal: Above high normal; Units: MG/DL; Status: F Test: CREATININE FOR GFR; Value: 0.98; Range: 0.70-1.30; Units: MG/DL; Status: F Test: GLOMERULAR FILTRATION RATE; Value: > 60.0; Range: >49; Status: F Test: SODIUM LEVEL; Value: 140; Range: 136-145; Units: MEQ/L; Status: F Test: POTASSIUM SERUM; Value: 4.2; Range: 3.5-5.1; Units: MEQ/L; Status: F Test: CHLORIDE LEVEL; Value: 106; Range: 98-107; Units: MEQ/L; Status: F Test: CARBON DIOXIDE LEVEL; Value: 27; Range: 21-32; Units: MEQ/L; Status: F Test: ANION GAP; Value: 7; Range: 8-16; Abnormal: Below low normal; Units: MEQ/L; Status: F Test: CALCIUM LEVEL; Value: 8.3; Range: 8.8-10.2; Abnormal: Below low normal; Units: MG/DL; Status: F Test: AST/SGOT; Value: 27; Range: 15-37; Units: U/L; Status: F Test: ALT/SGPT; Value: 36; Range: 12-78; Units: U/L; Status: F Test: ALKALINE PHOSPHATASE; Value: 52; Range: 45-117; Units: U/L; Status: F Test: BILIRUBIN,TOTAL; Value: 0.2; Range: 0.2-1.0; Units: MG/DL; Status: F Test: TOTAL PROTEIN; Value: 6.8; Range: 6.4-8.2; Units: GM/DL; Status: F Test: ALBUMIN; Value: 3.9; Range: 3.2-5.2; Units: GM/DL; Status: F Test: ALBUMIN/GLOBULIN RATIO; Value: 1.34; Range: 1.00-1.93; Status: F Test Note: ; Units are mL/min/1.73 m2 Chronic Kidney Disease Staging per NKF: Stage I & II GFR >=60 Normal to Mildly Decreased Stage III GFR 30-59 Moderately Decreased Stage IV GFR 15-29 Severely Decreased Stage V GFR <15 Very Little GFR Left ESRD GFR <15 on LAMINATOR [employer]ED CIRCUIT BOARDS Lab Order: MRSA SCREEN; SPEC'M 07/19/16 06:03 Test: MRSA SCREEN; Value: MRSA0 .; Status: F Test: MRSA SCREEN; Value: MRSA1; Status: F Test: MRSA SCREEN; Value: PROTOCOL:MRSA screening will be done on all admissions; Status: F Test: MRSA SCREEN; Value: MRSA10; Status: F Test: MRSA SCREEN; Value: reported within 24-72 hrs as MRSA "positive" or; Status: F Test: MRSA SCREEN; Value: MRSA11; Status: F Test: MRSA SCREEN; Value: "negative". Positive result places the patient on; Status: F Test: MRSA SCREEN; Value: MRSA12 contact precautions.; Status: F Test: MRSA SCREEN; Value: MRSA2; Status: F Test: MRSA SCREEN; Value: in the ICU and completed on all patients being; Status: F Test: MRSA SCREEN; Value: MRSA3; Status: F Test: MRSA SCREEN; Value: discharged or transferred out of ICU who have had a; Status: F Test: MRSA SCREEN; Value: MRSA4 48hour LOS (including deaths).; Status: F Test: MRSA SCREEN; Value: MRSA5; Status: F Test: MRSA SCREEN; Value: PROCEDURE: MRSA screening will be ordered: Collect; Status: F Test: MRSA SCREEN; Value: MRSA6; Status: F Test: MRSA SCREEN; Value: specimen from bilateral nares (nasopharynx). If the; Status: F Test: MRSA SCREEN; Value: MRSA7; Status: F Test: MRSA SCREEN; Value: patient has chronic open draining wounds or any skin; Status: F Test: MRSA SCREEN; Value: MRSA8; Status: F Test: MRSA SCREEN; Value: puncture sites then these sites will be sent for MRSA; Status: F Test: MRSA SCREEN; Value: MRSA9; Status: F Test: MRSA SCREEN; Value: screening (limit 2 sites). Results of test to be; Status: F Test: MRSA SCREEN; Value: MRSA SCREEN RESULT NEGATIVE-MRSA NOT IDENTIFIED; Status: F Lab Order: ARTERIAL BLOOD GAS; SPEC'M 07/20/16 05:39 Test: ABG pH (ARTERIAL); Value: 7.412; Range: 7.350-7.450; Units: UNITS; Status: F Test: ABG PARTIAL PRESSURE CO2; Value: 41.2; Range: 35.0-45.0; Units: mmHg; Status: F Test: ABG PARTIAL PRESSURE O2; Value: 82.7; Range: 75.0-100.0; Units: mmHg; Status: F Test: ABG TOTAL CO2; Value: 26.9; Range: 23.0-31.0; Units: MEQ/L; Status: F Test: ABG HCO3; Value: 25.6; Range: 22.0-26.0; Units: MEQ/L; Status: F Test: ABG BASE EXCESS; Value: 0.9; Range: -2.0-2.0; Status: F Test: ABG STANDARD HCO3; Value: 25.3; Range: 22.0-26.0; Units: MEQ/L; Status: F Test: ABG O2 SATURATION; Value: 96.9; Range: 95.0-99.0; Units: %; Status: F Lab Order: CBC WITH DIFFERENTIAL; SPEC'07/20/16 04:10 Test: WHITE BLOOD COUNT; Value: 11.7; Range: 4.0-10.0; Abnormal: Above high normal; Units: K/mm3; Status: F Test: RED BLOOD COUNT; Value: 4.15; Range: 4.30-6.10; Abnormal: Below low normal; Units: M/mm3; Status: F Test: HEMOGLOBIN; Value: 13.5; Range: 14.0-18.0; Abnormal: Below low normal; Units: g/dl; Status: F Test: HEMATOCRIT; Value: 40.7; Range: 42.0-52.0; Abnormal: Below low normal; Units: %; Status: F Test: MEAN CORPUSCULAR VOLUME; Value: 97.9; Range: 80.0-96.0; Abnormal: Above high normal; Units: fl; Status: F Test: MEAN CORPUSCULAR HEMOGLOBIN; Value: 32.4; Range: 27.0-33.0; Units: pg; Status: F Test: MEAN CORPUSCULAR HGB CONC; Value: 33.1; Range: 32.0-36.5; Units: g/dl; Status: F Test: RED CELL DISTRIBUTION WIDTH; Value: 13.1; Range: 11.5-14.5; Units: %; Status: F Test: PLATELET COUNT, AUTOMATED; Value: 192; Range: 150-450; Units: k/mm3; Status: F Test: NEUTROPHILS %; Value: 92.1; Range: 36.0-66.0; Abnormal: Above high normal; Units: %; Status: F Test: LYMPH %; Value: 4.4; Range: 24.0-44.0; Abnormal: Below low normal; Units: %; Status: F Test: MONO %; Value: 3.0; Range: 0.0-5.0; Units: %; Status: F Test: EOS %; Value: 0.0; Range: 0.0-3.0; Units: %; Status: F Test: BASO %; Value: 0.0; Range: 0.0-1.0; Units: %; Status: F Test: LARGE UNSTAINED CELL %; Value: 0.5; Range: 0.0-4.0; Units: %; Status: F Test: NEUTROPHILS #; Value: 10.8; Range: 1.8-7.7; Abnormal: Above high normal; Units: K/mm3; Status: F Test: LYMPH #; Value: 0.5; Range: 1.5-4.5; Abnormal: Below low normal; Units: K/mm3; Status: F Test: MONO #; Value: 0.4; Range: 0.0-0.8; Units: K/mm3; Status: F Test: EOS #; Value: 0.0; Range: 0.0-0.50; Units: K/mm3; Status: F Test: BASO #; Value: 0.0; Range: 0.0-0.2; Units: K/mm3; Status: F Test: LARGE UNSTAINED CELL #; Value: 0.1; Range: 0.0-0.4; Units: K/mm3; Status: F Lab Order: COMPLETE COMPHRENSIVE METABOLI; SPEC'M 07/20/16 04:10 Test: GLUCOSE, FASTING; Value: 154; Range: 80-110; Abnormal: Above high normal; Units: MG/DL; Status: F Test: BLOOD UREA NITROGEN; Value: 19; Range: 7-18; Abnormal: Above high normal; Units: MG/DL; Status: F Test: CREATININE FOR GFR; Value: 0.78; Range: 0.70-1.30; Units: MG/DL; Status: F Test: GLOMERULAR FILTRATION RATE; Value: > 60.0; Range: >49; Status: F Test: SODIUM LEVEL; Value: 145; Range: 136-145; Units: MEQ/L; Status: F Test: POTASSIUM SERUM; Value: 4.1; Range: 3.5-5.1; Units: MEQ/L; Status: F Test: CHLORIDE LEVEL; Value: 110; Range: 98-107; Abnormal: Above high normal; Units: MEQ/L; Status: F Test: CARBON DIOXIDE LEVEL; Value: 26; Range: 21-32; Units: MEQ/L; Status: F Test: ANION GAP; Value: 9; Range: 8-16; Units: MEQ/L; Status: F Test: CALCIUM LEVEL; Value: 8.0; Range: 8.8-10.2; Abnormal: Below low normal; Units: MG/DL; Status: F Test: AST/SGOT; Value: 29; Range: 15-37; Units: U/L; Status: F Test: ALT/SGPT; Value: 31; Range: 12-78; Units: U/L; Status: F Test: ALKALINE PHOSPHATASE; Value: 47; Range: 45-117; Units: U/L; Status: F Test: BILIRUBIN,TOTAL; Value: 0.2; Range: 0.2-1.0; Units: MG/DL; Status: F Test: TOTAL PROTEIN; Value: 6.4; Range: 6.4-8.2; Units: GM/DL; Status: F Test: ALBUMIN; Value: 3.5; Range: 3.2-5.2; Units: GM/DL; Status: F Test: ALBUMIN/GLOBULIN RATIO; Value: 1.21; Range: 1.00-1.93; Status: F Test Note: ; Units are mL/min/1.73 m2 Chronic Kidney Disease Staging per NKF: Stage I & II GFR >=60 Normal to Mildly Decreased Stage III GFR 30-59 Moderately Decreased Stage IV GFR 15-29 Severely Decreased Stage V GFR <15 Very Little GFR Left ESRD GFR <15 on LAMINATOR PR[employer]ED [employer] BOARDS Radiology Order: Chest, 1 View Test: Chest, 1 View REASON FOR EXAMINATION: POST INTUBATION; Clinical: Status post intubation.; ; Comparison: 02/06/2009.; ; Findings:; Examination is limited by portable technique and poor inspiratory effort which; accentuate the pulmonary vasculature and interstitial markings. Pulmonary; vascular congestion cannot be excluded along with basilar atelectasis.; Endotracheal tube is approximately 2.2 cm above the goyo. No definite; effusion. No pneumothorax. Skeletal structures appear intact.; ; Impression:; Endotracheal tube approximately 2.2 cm above the goyo.; Cannot exclude pulmonary vascular congestion or trace basilar atelectasis.; ; ; Signed by; David Gonzalez MD 07/19/2016 12:21 A; Radiology Order: PORTABLE CHEST X-RAY Test: PORTABLE CHEST X-RAY REASON FOR EXAMINATION: ett; PORTABLE CHEST X-RAY: Sitting AP view.; ; HISTORY: Endotracheal tube.; ; Comparison study July 19, 2016.; ; FINDINGS: EKG monitoring electrodes and oxygen delivery tubing are seen. An; endotracheal tube is noted in good position at the level of the transverse aorta.; The lungs are better inflated. No definite infiltrate. Some discoid atelectasis; is suspected in the left base. Pleural angles are sharp. Heart is not felt to; be enlarged.; ; ; Signed by; Scooter Chand MD 07/20/2016 10:05 A; Outcome: 00:22 Decision to Hospitalize by Provider. [id number] 05:27 Discharge Assessment: Patient unresponsive, patient administered narcotics - yes. jp6 Patient was admitted to the hospital or transferred to another facility. Admitted to ICU accompanied by nurse, accompanied by tech, via stretcher, with oxygen, on monitor, with chart. critical. No special radiology studies were completed. Admission hand-off: Report called to Tatum GALICIA. Property :Personal belongings accompany Pt. 05:31 The following High Risk Discharge criteria are identified: None. jp6 05:44 Patient left the ED. sls1 Signatures: Dispatcher [employer] EDMS Lor Martinez, Reg Reg Rosaline Holbrook,RN RN scott3 Drew Valdez, DO [id number] Alfa Pan jc3 Suha Colby, RN RN sls1 Kylie Morris Rebecca, OYSTER PICKER OYSTER PICKER rs6 Joshua Argueta, OYSTER PICKER OYSTER PICKER Leyla Miranda,RN RN marla2 Anita Walker,RN RN jp6 Corrections: (The following items were deleted from the chart) 00:31 00:25 Reassessment: Pt moved to C2- used ambuscope pt tolerated well.Plan to [facility] intubate for swelling.. jp6 Chart Complete MTDD
[2016-07-21] MEDS: CLOPIDOGREL 75 MG TAB PO SCH (09:16)
[2016-07-21] MEDS: ASPIRIN 325 MG TAB PO SCH (09:16)
--- NOTE | 2016-07-21 10:05 | DSES ---
DATE OF ADMISSION: 07/19/2016 DATE OF DISCHARGE: 07/21/2016 DISCHARGE DIAGNOSES: 1. Angioedema with upper airway compromise. 2. Respiratory failure requiring intubation and mechanical ventilatory support. 3. Hypertension. HISTORY: Mr. Harris is a 65-year-old gentleman who presented to the emergency department on 07/19/2016 with shortness of breath and foreign body sensation in his throat. An endoscopy was performed in the emergency department showing significant edema with compromise of the upper airway above the level of the vocal cords. A #7 endotracheal tube was passed over the scope, by the obstruction and into the trachea. The patient was placed on mechanical ventilation and the critical care service was called. The patient had been being treated for coronary artery disease. He had stents in place, hypertension, dyslipidemia, osteoarthritis, degenerative disk disease and in his medication list was lisinopril. His medications at the time of admission were acetaminophen 650 every 8 hours as needed, vitamin C 500 a day, aspirin 81 mg a day, B vitamins, calcium 500 mg with vitamin D, cholecalciferol 1000 mg daily, Plavix 75 mg daily, fish oil 1200 mg a day, Crestor 20 mg at bedtime, timolol maleate eye drops, and zolpidem 10 mg at bedtime, and as mentioned, lisinopril 20 mg a day. PHYSICAL FINDINGS ON ADMISSION: On my arrival, the patient had been intubated nasally within a #7 endotracheal tube. He was sedate with propofol. His oral mucosa was pink. There is no air leak around the endotracheal tube. Neck was supple. There was no palpable edema or adenopathy. Heart sounds were regular without appreciable murmur. Breath sounds coarse, clear. Abdomen soft and extremities showed no significant edema. Pulses were palpable times four. DIAGNOSTIC STUDIES: A photograph taken during the endoscopy showed a near total obstruction of the upper airway above the level of the vocal cords. Chest x-ray image performed after intubation showed the endotracheal tube to be in good position. Some atelectasis and suggestion of interstitial edema was seen on the initial film, which improved on the subsequent imaging. On admission, his sodium was 142, potassium 4.0, chloride 107, CO2 29, BUN 31, creatinine 0.9, glucose 109. On 07/20/2016, the sodium was 145, potassium 4.1, chloride 110, CO2 26, BUN 19, creatinine 0.78, glucose 154. White cell count on admission was 7.7, hemoglobin 14.4, hematocrit 43.1, platelet count 162,000. On 07/20/2016, white cell count was 11.7, hemoglobin 13.5, hematocrit 40.7, platelet count 192,000. Arterial blood gases on admission showed a pH 7.32, pCO2 45, pO2 96. On 07/20/2016, pH was 7.41, pCO2 41, pO2 82. HOSPITAL COURSE: After intubation in the emergency department, the patient was transferred to the intensive care unit intubated, mechanically ventilated, sedated with propofol. He was maintained with deep sedation for 24 hours, given 2 units of fresh frozen plasma in the emergency department. He received IV steroids and Benadryl. On 07/20/2016, nasal laryngoscopy was performed using a bronchoscope. The area of swelling in the supraglottic region was found to be resolved and the patient's sedation was reversed. The patient was weaned and extubated. He tolerated this well, was able to be up and ambulatory. IV fluids were stopped. He was able to eat and drink. He was reevaluated on the morning of 07/21/2016 up and ambulatory, eating and drinking with no symptoms of pain. Some minor chest congestion, cough was minimally productive. He was felt stable for discharge in a much improved condition. He was instructed at discharge to stop lisinopril but to continue all other medications as prior to admission. A request was made for him to be followed by his primary care provider in 2 weeks and his spouse present throughout the hospital stay was to monitor his blood pressures off lisinopril. During hospitalization his blood pressures remained well controlled and final blood pressure prior to discharge was 126/74. cc: Boubacar Chapa Jr, MD *Alessandro Campbell MD
== END 2016-07-21 10:34 | disposition home or self-care (01) | DRG 133 ==
LOC: M ED 22:53 → UNDOADMIN 07-19 00:50 → M ICU 07-19 00:50 → M ED INP 07-19 00:50 → M ICU 07-19 05:45 → M ED INP 07-19 05:45 → M ICU 07-21 04:02 → M MS5PR 07-21 06:20
PROVIDERS: ADMIT Internal Medicine Pulmonary Disease; ATTEND Internal Medicine Pulmonary Disease
PROC: 5A1945Z Respiratory Ventilation, 24-96 Consecutive Hours (ICD-10-PCS; principal; 2016-07-19)
PROC: 30233K1 Transfusion of Nonautologous Frozen Plasma into Peripheral Vein, Percutaneous Approach (ICD-10-PCS; 2016-07-19)
PROC: 0CJS8ZZ Inspection of Larynx, Via Natural or Artificial Opening Endoscopic (ICD-10-PCS; 2016-07-20)
DX: J96.01 Acute respiratory failure with hypoxia (principal); T78.3XXA Angioneurotic edema, initial encounter; I10 Essential (primary) hypertension; T44.5X5A Adverse effect of predominantly beta-adrenoreceptor agonists, initial encounter; I25.10 Atherosclerotic heart disease of native coronary artery without angina pectoris; E78.5 Hyperlipidemia, unspecified; M19.90 Unspecified osteoarthritis, unspecified site; Z79.899 Other long term (current) drug therapy; I25.2 Old myocardial infarction; Z95.9 Presence of cardiac and vascular implant and graft, unspecified

== ENCOUNTER → 2018-07-21 | Outpatient (REF) | payer MEDICARE, OTHER ==
[~2018-07-21] MED LIST: ASPI81CH PO; CALC1TAB30 PO; CRES20TA PO; FISH120012 PO; LISI2.5T5 PO; PLAV1TAB2 PO; TIMO0.5S29 OU; TYLE650T35 PO; VITA100066 PO; VITA500T PO; VITATAB11 PO; ZOLP10TA2 PO
== END ==
LOC: M LAB REF 13:14
PROVIDERS: ATTEND Nurse Practitioner Adult Health
DX: L02.11 Cutaneous abscess of neck (principal)

== ENCOUNTER → 2020-04-15 | Outpatient (CLI) | payer MEDICARE ==
[~2020-04-15] MED LIST changes: +ACET650T61 PO; -ASPI81CH PO; +ASPI81CH49 PO; -CRES20TA PO; +CRES20TA2 PO; +LISI2.5T2 PO; -LISI2.5T5 PO; -TYLE650T35 PO; +VITA-243 PO; -VITA500T PO
== END ==
LOC: M LABSMTC 08:37
PROVIDERS: ATTEND Orthopaedic Surgery
DX: Z01.818 Encounter for other preprocedural examination (principal); Z20.828 Contact with and (suspected) exposure to other viral communicable diseases

== ENCOUNTER → 2021-04-09 | Outpatient (REF) | payer MEDICARE ==
[~2021-04-09] MED LIST changes: -LISI2.5T2 PO; +LISI2.5T9 PO
== END ==
LOC: M LAB REF 19:33
PROVIDERS: ATTEND Otolaryngology
DX: C44.02 Squamous cell carcinoma of skin of lip (principal)

== ENCOUNTER 2023-04-02 09:53 | Day surgery (SDC) | payer OTHER ==
[~2023-04-02] VITALS: Ht 172.7 cm; Wt 98.1 kg
[~2023-04-02 09:53] MED LIST changes: +AMLO1TAB24 PO; +CLOP75TA99 PO; +ELIQ5TAB PO; +METO1TAB32 PO; +NITR0.4S14 SL; +NS 1,000 ML IV ONE; -PLAV1TAB2 PO; +ROSU40TA4 PO; +TIMO0.5S20 OU; -TIMO0.5S29 OU; +TRAZ-252 PO; +VITAD400CA PO; +VITMTA PO
[2023-04-02] MEDS ORDERED: LIDOCAINE 2% 100MG/5ML SDV (FOR ANES.) As Ordered ONE (10:16)
[2023-04-02] MEDS ORDERED: propofoL 200 MG/20 ML VIAL As Ordered ONE (10:16)
[2023-04-02 11:24] VITALS: TEMP 97
[2023-04-02 11:40] VITALS: BP 117/71; O2SAT 97
== END 2023-04-02 11:40 | disposition home or self-care (01) ==
LOC: M OPP 09:53
PROVIDERS: ATTEND Internal Medicine Gastroenterology
DX: Z86.010 Personal history of colon polyps (principal); K57.30 Diverticulosis of large intestine without perforation or abscess without bleeding; D12.6 Benign neoplasm of colon, unspecified; Z79.01 Long term (current) use of anticoagulants; Z79.2 Long term (current) use of antibiotics; Z79.82 Long term (current) use of aspirin; Z79.899 Other long term (current) drug therapy; Z87.891 Personal history of nicotine dependence; I48.91 Unspecified atrial fibrillation; Z95.5 Presence of coronary angioplasty implant and graft; R07.9 Chest pain, unspecified; I25.10 Atherosclerotic heart disease of native coronary artery without angina pectoris; I25.2 Old myocardial infarction

== ENCOUNTER → 2025-01-25 | Outpatient (CLI) | payer MEDICARE, OTHER ==
[~2025-01-25] MED LIST changes: -NS 1,000 ML IV ONE; -ROSU40TA4 PO; +ROSU40TA81 PO
== END ==
LOC: M WUC 15:47
PROVIDERS: ATTEND Internal Medicine
DX: M25.572 Pain in left ankle and joints of left foot (principal)